=== PATIENT | female | born 1970 | race Caucasian/White ===

== ENCOUNTER 2017-03-01 12:56 | Observation (INO) ==
[2017-03-01] MEDS ORDERED: Ondansetron 4 MG/2 ML VIAL IVP ONE ×2 (13:24→14:58)
[2017-03-01] MEDS ORDERED: *HR* Morphine 2 MG/ML SYRINGE IVP ONE ×2 (13:24→14:57)
[2017-03-01 13:35] LABS: Bilirubin,Urine Negative (Negative); Blood,Urine Negative (Negative); Clarity,Urine Clear (Clear); Color,Urine Yellow (Yellow); Glucose,Urine (UA) Normal (Normal); Ketones,Urine Negative (Negative); Leukocyte Esterase,Urine Negative (Negative); Nitrite,Urine Negative (Negative); Protein,Urine Negative (Neg-Trace); Urobilinogen,Urine Normal (Normal)
--- NOTE | 2017-03-01 13:46 | Emergency Department Note ---
Disposition Clinical Impression: Acute appendicitis Qualifiers: Acute appendicitis type: unspecified acute appendicitis type Qualified Code(s) : K35.80 - Unspecified acute appendicitis Disposition: Admitted As Inpatient Condition: Good Referrals: NONE,PCP [Non-Partnered Physician] - Forms: Work/School Release, ED Satisfaction Letter Abdominal Pain HPI - General Chief Complaint: ED Abdominal Pain Stated Complaint: Right ABD pain Time Seen by Provider: 03/01/17 13:08 Source: patient Mode of arrival: private vehicle Limitations: no limitations Nursing Notes Reviewed: Yes Vital Signs Reviewed: Yes - History of Present Illness HPI Narrative: 46-year-old female no medical history who presents to the ER with a chief complaint of abdominal pain. Patient states that she started developing pain on the 18th of this month. She reports it is mostly right lower quadrant. She reports nausea during this time but no vomiting or diarrhea. No recent fevers that she is aware of. She denies a prior surgical history with the exception of a total hysterectomy. She denies sick contacts. She has no other complaints. Pt Subjective Complaint: abdominal pain Onset (ago): day(s) Consistency: constant Location: RLQ Pain Severity: severe Pain Scale: 9 Quality: stabbing Radiation: none Migration to: no migration Improves with: nothing Worsens with: nothing Associated symptoms: Reports: nausea. Denies: vomiting, diarrhea, fever, dysuria, hematuria - Related Data Previous Rx's Medication Instructions Recorded predniSONE [PredniSONE] 60 mg PO DAILY #30 tablet 02/20/15 Allergies Allergy/AdvReac Type Severity Reaction Status Date / Time acetaminophen Allergy Rash Unverified 03/01/17 12:57 [From Tylenol-Codeine #3] cephalexin [From Keflex] Allergy Rash Unverified 03/01/17 12:57 codeine Allergy Rash Verified 03/01/17 12:57 venlafaxine [From Effexor] Allergy See Unverified 03/01/17 12:57 Comments venom-honey bee Allergy Anaphylaxis Unverified 03/01/17 12:57 All systems ED: reviewed and negative except as stated. Constitutional: Denies: fever Cardiovascular: Denies: chest pain Respiratory: Denies: dyspnea Gastrointestinal: Reports: abdominal pain, nausea. 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 history : 2 Para: 2 A: 0 Psychiatric history: Reports: anxiety, depression - Social History Smoking status: Current every day smoker Alcohol use: Reports: rarely Drug use: Reports: none Physical Exam - General Limitations: no limitations General appearance: alert, in no apparent distress - Head Head exam: atraumatic, normocephalic, normal inspection - Eye Eye exam: Present: normal appearance, EOMI - ENT ENT exam: normal exam - Neck Neck exam: Present: normal inspection, full ROM - Chest Chest inspection: Present: normal inspection, symmetric chest wall rise - Respiratory Respiratory exam: Present: normal lung sounds bilaterally - Cardiovascular Cardiovascular exam: Present: regular rate, normal rhythm, normal heart sounds - Abdominal Exam Abdominal exam: Present: soft, tenderness (Patient has moderate tenderness to palpation in the right lower quadrant without rigidity or guarding.). Absent: distention, guarding, rigidity - Extremities Exam Extremities exam: Present: normal inspection, full ROM - Expanded Upper Extremity Exam Shoulder exam: Present: normal inspection, full ROM Arm exam: Present: normal inspection, full ROM Elbow exam: Present: normal inspection, full ROM Forearm/Wrist exam: Present: normal inspection, full ROM Hand exam: Present: normal inspection, full ROM - Expanded Lower Extremity Exam Hip/Pelvis exam: Present: normal inspection, full ROM Upper leg exam: Present: normal inspection, full ROM Knee exam: Present: normal inspection, full ROM Lower leg exam: Present: normal inspection, full ROM Ankle exam: Present: normal inspection, full ROM Foot/toe exam: Present: normal inspection, full ROM Neurovascular/Tendon exam: Absent: motor deficit, sensory deficit - Neurological Exam Neurological exam: Present: alert. Absent: motor sensory deficit - Psychiatric Psychiatric exam: Present: normal affect, normal mood - Skin Skin exam: Present: warm, dry, intact, normal color Course Course Narrative: Patient seen and examined. Vital signs reviewed. We will get a CT scan of the abdomen and pelvis as well as labs and urinalysis. - Reevaluation(s) Reevaluation #1: I discussed results of imaging, lab work and consultation with the surgeon. Patient is tearful but understands the course of her medical care. Patient admitted to the surgeon service for further evaluation and management. - Consultations Consultation #1: Case discussed with the on-call surgeon Dr. Guerrero's nurse. Discussed patient's history labs imaging and exam findings. The patient has uncomplicated appendicitis. We will give a dose of Zosyn here and they request the patient to be brought to PACU. Vital Signs Temperature 97.6 F 03/01/17 12:58 Pulse Rate 81 03/01/17 12:58 Respiratory Rate 16 03/01/17 12:58 Blood Pressure 141/93 03/01/17 12:58 O2 Sat by Pulse Oximetry 100 03/01/17 12:58 Temperature 97.6 F 03/01/17 12:58 Pulse Rate 81 03/01/17 12:58 Respiratory Rate 16 03/01/17 12:58 Blood Pressure 141/93 03/01/17 12:58 O2 Sat by Pulse Oximetry 100 03/01/17 12:58 Oxygen Delivery Oxygen Delivery Room Air Abdominal Pain - MDM Narrative Medical decision making narrative: 46-year-old female presents to the ER due to right sided abdominal pain for 3 days duration. She has acute appendicitis on CT. White count is 12. Patient' s pain is well-controlled in the ER. Consultation to the surgeon with admission to the surgeon service for further management. - Lab Data Lab results reviewed: Yes I reviewed the patient's lab results. Result diagrams: 03/01/17 13:49 03/01/17 13:49 Lab Results 03/01/17 03/01/17 03/01/17 Range/Units 13:16 13:16 13:49 WBC 12.0 H (4.3-11.1) K/mcL RBC 4.26 (3.82-4.97) M/mcL Hgb 12.5 (11.5-15.4) g/dL Hct 39.2 (35.3-44.9) % MCV 92.0 (83.0-100.0) fL MCH 29.3 (28.0-33.3) pg MCHC 31.9 (31.6-35.5) g/dL RDW 13.7 (11.5-14.5) % Plt Count 257 (140-400) K/mcL MPV 11.0 (9.4-12.4) fL Immature Gran % 0.3 (0-4) % Seg Neutrophils % 76.1 % Lymphocytes % 13.9 % Monocytes % 8.2 % Eosinophils % 1.3 % Basophils % 0.2 % Neutrophils # 9.1 H (1.6-8.9) K/mcL Lymphocytes # 1.7 (0.6-4.6) K/mcL Monocytes # 1.0 (0.0-1.3) K/mcL Eosinophils # 0.2 (0.0-0.6) K/mcL Basophils # 0.0 (0.0-0.2) K/mcL Sodium (136-145) mEq/L Potassium (3.5-4.5) mEq/L Chloride (98-109) mEq/L Carbon Dioxide (19-29) mEq/L BUN (7-20) mg/dL Creatinine (0.57-1.11) mg/dL Est GFR ( Amer) (> 60) Est GFR (Non-Af Amer) (> 60) BUN/Creatinine Ratio (6-26) Glucose (70-99) mg/dL Calculated Osmolality (280-300) Calcium (8.6-10.8) mg/dL Total Bilirubin (0.2-1.2) mg/dL Direct Bilirubin (0.0-0.5) mg/dL Indirect Bilirubin (0.0-1.2) mg/dL AST (5-34) Units/L ALT (0-55) Units/L Alkaline Phosphatase (38-126) Units/L Serum Total Protein (6.0-8.3) g/dL Albumin (3.5-5.0) g/dL Globulin (2.4-3.5) g/dL Albumin/Globulin Ratio (1.1-2.2) Lipase (8-78) Units/L Urine Color Yellow (Yellow) Urine Clarity Clear (Clear) Urine pH 6.0 (5.0-8.0) pH Units Ur Specific [place] 1.020 (1.010-1.025) Urine Protein Negative (Neg-Trace) mg/dL Urine Glucose (UA) Normal (Normal) mg/dL Urine Ketones Negative (Negative) mg/dL Urine Blood Negative (Negative) Urine Nitrite Negative (Negative) Urine Bilirubin Negative (Negative) Urine Urobilinogen Normal (Normal) mg/dL Ur Leukocyte Esterase Negative (Negative) Ur Culture Indicated? NO (NO) Urine Test Negative (Negative) 03/01/17 Range/Units 13:49 WBC (4.3-11.1) K/mcL RBC (3.82-4.97) M/mcL Hgb (11.5-15.4) g/dL Hct (35.3-44.9) % MCV (83.0-100.0) fL MCH (28.0-33.3) pg MCHC (31.6-35.5) g/dL RDW (11.5-14.5) % Plt Count (140-400) K/mcL MPV (9.4-12.4) fL Immature Gran % (0-4) % Seg Neutrophils % % Lymphocytes % % Monocytes % % Eosinophils % % Basophils % % Neutrophils # (1.6-8.9) K/mcL Lymphocytes # (0.6-4.6) K/mcL Monocytes # (0.0-1.3) K/mcL Eosinophils # (0.0-0.6) K/mcL Basophils # (0.0-0.2) K/mcL Sodium 140 (136-145) mEq/L Potassium 3.9 (3.5-4.5) mEq/L Chloride 104 (98-109) mEq/L Carbon Dioxide 28 (19-29) mEq/L BUN 17 (7-20) mg/dL Creatinine 0.78 (0.57-1.11) mg/dL Est GFR ( Amer) > 60 (> 60) Est GFR (Non-Af Amer) > 60 (> 60) BUN/Creatinine Ratio 22 (6-26) Glucose 78 (70-99) mg/dL Calculated Osmolality 290 (280-300) Calcium 9.7 (8.6-10.8) mg/dL Total Bilirubin < 0.3 (0.2-1.2) mg/dL Direct Bilirubin 0.1 (0.0-0.5) mg/dL Indirect Bilirubin 0.2 (0.0-1.2) mg/dL AST 17 (5-34) Units/L ALT 18 (0-55) Units/L Alkaline Phosphatase 161 H (38-126) Units/L Serum Total Protein 7.5 (6.0-8.3) g/dL Albumin 3.7 (3.5-5.0) g/dL Globulin 3.8 H (2.4-3.5) g/dL Albumin/Globulin Ratio 1.0 L (1.1-2.2) Lipase 22 (8-78) Units/L Urine Color (Yellow) Urine Clarity (Clear) Urine pH (5.0-8.0) pH Units Ur Specific [place] (1.010-1.025) Urine Protein (Neg-Trace) mg/dL Urine Glucose (UA) (Normal) mg/dL Urine Ketones (Negative) mg/dL Urine Blood (Negative) Urine Nitrite (Negative) Urine Bilirubin (Negative) Urine Urobilinogen (Normal) mg/dL Ur Leukocyte Esterase (Negative) Ur Culture Indicated? (NO) Urine Test (Negative) - Radiology Data Radiology results reviewed: Yes I reviewed the patient's radiology results. Abdomen/Pelvis CT 03/01/17 13:24 IMPRESSION: 1. Acute appendicitis. No evidence of perforation or abscess. 2. Secondary small bowel ileus. 3. Incidental mild fatty infiltration of the liver. D/ / 03/01/2017 14:42:13 Alexandra Hernandez MD / lizzy Interpreting Provider: Alexandra Hernandez MD
--- NOTE | 2017-03-01 13:47 | Emergency Department Note ---
START Narrative - START START: I examined this patient and my medical decision-making was reviewed with the Resident Physician. I agree with the documented findings, disposition and treatment plan as described except to the extent set forth below. RLQ pain. +guarding and peritoneal sign. eval for appendicitis
[2017-03-01 13:55] LABS: Basophils % 0.2 %; Eosinophils # 0.2 K/mcL (0.0-0.6); Eosinophils % 1.3 %; Hematocrit 39.2 % (35.3-44.9); Hemoglobin 12.5 g/dL (11.5-15.4); Immature Granulocytes % 0.3 % (0-4); Lymphocytes # 1.7 K/mcL (0.6-4.6); Lymphocytes % 13.9 %; Mean Corpuscular HGB Conc 31.9 g/dL (31.6-35.5); Mean Corpuscular Hemoglobin 29.3 pg (28.0-33.3); Monocytes % 8.2 %; Neutrophils # 9.1 K/mcL (1.6-8.9); Platelet Count 257 K/mcL (140-400); Red Blood Count 4.26 M/mcL (3.82-4.97); Red Cell Distribution Width 13.7 % (11.5-14.5); Segmented Neutrophils % 76.1 %
[2017-03-01 14:10] LABS: Alanine Aminotransferase 18 Units/L (0-55); Albumin 3.7 g/dL (3.5-5.0); Alkaline Phosphatase 161 Units/L (38-126); Aspartate Amino Transferase 17 Units/L (5-34); BUN/Creatinine Ratio 22 (6-26); Bilirubin,Direct 0.1 mg/dL (0.0-0.5); Bilirubin,Indirect 0.2 mg/dL (0.0-1.2); Bilirubin,Total < 0.3 mg/dL (0.2-1.2); Blood Urea Nitrogen 17 mg/dL (7-20); Calcium 9.7 mg/dL (8.6-10.8); Carbon Dioxide 28 mEq/L (19-29); Chloride 104 mEq/L (98-109); Globulin 3.8 g/dL (2.4-3.5); Glucose 78 mg/dL (70-99); Lipase 22 Units/L (8-78); Osmolality,Calculated 290 (280-300); Potassium 3.9 mEq/L (3.5-4.5); Sodium 140 mEq/L (136-145); Total Protein 7.5 g/dL (6.0-8.3); eGFR For African Americans > 60 (> 60); eGFR For Non-African Americans > 60 (> 60)
[2017-03-01] MEDS ORDERED: Piperacillin/Tazobactam 3.375 GM in D5% in Water (Mini-Bag+) 100 ML IVPB ONE (14:54)
--- NOTE | 2017-03-01 15:16 | General Surg History&Physical ---
Date of Encounter: 03/01/17 Time of Encounter: 15:45 Assessment and Plan (1) Leukocytosis Current Visit: Yes Status: Acute The assessment and plan as outlined above was discussed with the patient and/or family members who expressed understanding and agreement. All questions were answered. patient was to receive zosyn starting in the ED will check CBC tomorrow Qualifiers: Leukocytosis type: unspecified Qualified Code(s): D72.829 - Elevated white blood cell count, unspecified (2) Acute appendicitis Current Visit: Yes Status: Acute The assessment and plan as outlined above was discussed with the patient and/or family members who expressed understanding and agreement. All questions were answered. discussed with patient CT and lab results. She has acute appendicitis. Will plan laparoscopic appendectomy, possible open, risks and benefits discussed and she wishes to proceed she ate pretzels at noon and a breakfast sandwich at 7 am continue NPO prn pain control abx Qualifiers: Acute appendicitis type: unspecified acute appendicitis type Qualified Code (s): K35.80 - Unspecified acute appendicitis (3) GERD (gastroesophageal reflux disease) Current Visit: Yes Status: Chronic The assessment and plan as outlined above was discussed with the patient and/or family members who expressed understanding and agreement. All questions were answered. PPI therapy Qualifiers: Esophagitis presence: esophagitis presence not specified Qualified Code(s) : K21.9 - Gastro-esophageal reflux disease without esophagitis (4) Anxiety Current Visit: Yes Status: Chronic The assessment and plan as outlined above was discussed with the patient and/or family members who expressed understanding and agreement. All questions were answered. ok to continue home meds (5) Depression Current Visit: Yes Status: Chronic The assessment and plan as outlined above was discussed with the patient and/or family members who expressed understanding and agreement. All questions were answered. ok to continue home meds Qualifiers: Depression Type: unspecified Qualified Code(s): F32.9 - Major depressive disorder, single episode, unspecified History of Present Illness Chief complaint: abdominal pain HPI: Ms. Martins is a 46 year old female who woke two days ago with RLQ sharp pain. The pain has progressively gotten worse with time. She has had a lot of nausea but no emesis. No dysuria or diarrhea. Denies fevers chills or night sweats other than her usual after her hysterectomy. She presented to the ED where wbc was elevated and CT showed acute noncomplicated appendicitis. Past Med Surg Social Fam HX - Past Medical History Source: patient Medical history: no medical history Psychiatric history: anxiety, depression - Past Surgical History Surgical History: , hysterectomy - Social History Smoking Status: Current every day smoker Smokeless Tobacco Status: No Alcohol use: rarely Drug use: none Medications and Allergies Albuterol Sulfate [Albuterol Inhaler] 2 puff IH Q6H PRN 03/01/17 [History] EPINEPHrine [Epipen] 0.3 mg IM ONCE PRN 03/01/17 [History] Fluticasone Propionate Nasal [Flonase] 2 spr NS DAILY PRN 03/01/17 [History] Gabapentin [Neurontin] 100 mg PO TID 03/01/17 [History] Multivitamin [One Daily Essential] 1 each PO DAILY 03/01/17 [History] PARoxetine HCl [Paroxetine HCl] 10 mg PO DAILY 03/01/17 [History] 3 Allergy/AdvReac Type Severity Reaction Status Date / Time acetaminophen Allergy Rash Verified 03/01/17 15:07 [From Tylenol-Codeine #3] cephalexin [From Keflex] Allergy Rash Verified 03/01/17 15:07 codeine Allergy Rash Verified 03/01/17 15:07 venlafaxine [From Effexor] Allergy See Verified 03/01/17 15:07 Comments venom-honey bee Allergy Anaphylaxis Verified 03/01/17 15:07 Review of Systems All systems PM: reviewed and no additional remarkable complaints except as stated All systems PM: A 10-system review of systems was performed and is negative for pertinent findings except as documented above in the HPI. General Surgery Exam Initial Vital Signs Temp Pulse Resp BP Pulse Ox 97.6 F 81 16 141/93 100 03/01/17 12:58 03/01/17 12:58 03/01/17 12:58 03/01/17 12:58 03/01/17 12:58 - General physical appearance well developed, well nourished, no distress, obese - Eyes PERRL, normal ocular movement - ENT normal mucosa, normocephalic - Neck trachea midline - Respiratory normal expansion, clear to auscultation - Cardiovascular Cardiovascular exam: Present: RRR - Abdomen Abdomen general surgery: Present: bowel sounds present, soft, tender (RLQ, no rebound or guarding) - Integumentary Integumentary general surgery: Present: warm and dry, no abnormal pigmentation - Neurologic Present: CN 2-12 grossly intact - Musculoskeletal Present: normal posture - Psychiatric Psychiatric general surgery: Present: A&Ox3, speech is normal Results - Labs 03/01/17 13:49 03/01/17 13:49 Abnormal lab results WBC 12.0 K/mcL (4.3-11.1) H 03/01/17 13:49 Neutrophils # 9.1 K/mcL (1.6-8.9) H 03/01/17 13:49 Alkaline Phosphatase 161 Units/L (38-126) H 03/01/17 13:49 Globulin 3.8 g/dL (2.4-3.5) H 03/01/17 13:49 Albumin/Globulin Ratio 1.0 (1.1-2.2) L 03/01/17 13:49 All other labs normal. - Imaging CT scan - abdomen: report reviewed, image reviewed CT scan - pelvis: report reviewed, image reviewed
[2017-03-01] MEDS ORDERED: *HR* Propofol 200 MG/20 ML VIAL IVP ONE (15:23)
[2017-03-01] MEDS ORDERED: *HR* FentaNYL (PF) 100 MCG/2 ML VIAL ONE (15:23)
[2017-03-01] MEDS ORDERED: *HR* Midazolam HCl 2 MG/2 ML VIAL ONE (15:23)
[2017-03-01] MEDS ORDERED: *HR* Succinylcholine 200 MG/10 ML VIAL IVP ONE (15:24)
[2017-03-01] MEDS ORDERED: Dexamethasone 4 MG/ML VIAL ONE (15:24)
[2017-03-01] MEDS ORDERED: Ondansetron 4 MG/2 ML VIAL ONE (15:24)
[2017-03-01] MEDS ORDERED: Lidocaine -MPF 2% 2 ML VIAL ONE (15:24)
[2017-03-01] MEDS ORDERED: *HR* Rocuronium Bromide 50 MG/5 ML VIAL ONE (15:24)
[2017-03-01] MEDS ORDERED: Ringers Solution, Lactated 1,000 ML ONE (15:41)
--- NOTE | 2017-03-01 15:59 | Anesthesia Evaluation PreOp ---
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) Other Medical History: Denies Any Significant HX Anesthesia History: No Prior Anesthetic Complications, Past Anesthesia (C-S, hysterectomy) Alcohol Use: rarely Drug use: none Medications and Allergies Albuterol Sulfate [Albuterol Inhaler] 2 puff IH Q6H PRN 03/01/17 [History] EPINEPHrine [Epipen] 0.3 mg IM ONCE PRN 03/01/17 [History] Fluticasone Propionate Nasal [Flonase] 2 spr NS DAILY PRN 03/01/17 [History] Gabapentin [Neurontin] 100 mg PO TID 03/01/17 [History] Multivitamin [One Daily Essential] 1 each PO DAILY 03/01/17 [History] PARoxetine HCl [Paroxetine HCl] 10 mg PO DAILY 03/01/17 [History] 3 Allergy/AdvReac Type Severity Reaction Status Date / Time acetaminophen Allergy Rash Verified 03/01/17 15:07 [From Tylenol-Codeine #3] cephalexin [From Keflex] Allergy Rash Verified 03/01/17 15:07 codeine Allergy Rash Verified 03/01/17 15:07 venlafaxine [From Effexor] Allergy See Verified 03/01/17 15:07 Comments venom-honey bee Allergy Anaphylaxis Verified 03/01/17 15:07 - Meds/Allergy Pre-op Review Medications Reviewed: Yes Allergies Reviewed: Yes Beta Blockers on Current Med List: No Anesthesia Results - Labs 03/01/17 13:49 03/01/17 13:49 Anesthesia Exam Vital Signs Temp Pulse Resp BP Pulse Ox 03/01/17 15:51 0 0/0 03/01/17 12:58 97.6 F 81 16 141/93 100 Intake and Output 02/28/17 03/01/17 03/01/17 23:59 07:59 15:59 Other: Stool Characteristics Normal for Patient Weight 102.149 kg Patient Weight 03/01/17 23:59 Weight 102.149 kg Weight: 102 kg NPO (# of Hours): ate at noon - HEENT Pupil (Motor): Pupils equal, EOMI Mallampati: II Teeth: Normal Oral Opening: Greater than 3 - SOUND PRINTER LOC: Oriented SOUND PRINTER Motor: Normal RUE, Normal LUE, Normal RLE, Normal LLE, Normal Face - Cardiac Rhythm: Regular Murmur: None - Pulmonary Breath Sounds: bilateral Clear Respiratory Effort: Symmetrical Anesthesia Assess/Plan ASA Score: 2 Modified Farhana Scale for Level of Consciousness: Cooperative, oriented, and tranquil Anesthetic Plan: General Monitoring Plan: Standard Monitors Recovery Plan: PACU
[2017-03-01] MEDS ORDERED: *HR* Promethazine 25 MG/ML VIAL IVP PRN (16:20)
[2017-03-01] MEDS ORDERED: Naloxone 0.4 MG/ML INJ IVP PRN (16:20)
[2017-03-01] MEDS ORDERED: Ondansetron 4 MG/2 ML VIAL IVP PRN (16:20)
[2017-03-01] MEDS ORDERED: Piperacillin/Tazobactam 3.375 GM in D5% in Water (Mini-Bag+) 100 ML IVPB SCH (16:20)
[2017-03-01] MEDS ORDERED: *HR* HYDROmorphone (PF) 1 MG/ML SYRINGE IVP PRN (16:20)
[2017-03-01] MEDS ORDERED: Pantoprazole 40 MG VIAL IVP SCH (16:20)
[2017-03-01] MEDS: *HR* HYDROmorphone (PF) 1 MG/ML SYRINGE IVP PRN ×2 (16:53→20:56)
[2017-03-01] MEDS: 0.9 % Sodium Chloride 1,000 ML IVC SCH (16:55)
[2017-03-01] MEDS ORDERED: Gabapentin 100 MG CAPSULE PO SCH (21:00)
[2017-03-02] MEDS: Piperacillin/Tazobactam 3.375 GM in D5% in Water (Mini-Bag+) 100 ML IVPB SCH ×4 (00:11→22:11)
[2017-03-02] MEDS: *HR* HYDROmorphone (PF) 1 MG/ML SYRINGE IVP PRN ×5 (00:15→22:12)
[2017-03-02 04:09] LABS: Basophils % 0.3 %; Eosinophils # 0.1 K/mcL (0.0-0.6); Eosinophils % 0.9 %; Hematocrit 37.8 % (35.3-44.9); Hemoglobin 12.3 g/dL (11.5-15.4); Immature Granulocytes % 0.3 % (0-4); Lymphocytes # 1.8 K/mcL (0.6-4.6); Lymphocytes % 14.3 %; Mean Corpuscular HGB Conc 32.5 g/dL (31.6-35.5); Mean Corpuscular Hemoglobin 30.1 pg (28.0-33.3); Mean Corpuscular Volume 92.6 fL (83.0-100.0); Mean Platelet Volume 11.5 fL (9.4-12.4); Neutrophils # 9.6 K/mcL (1.6-8.9); Platelet Count 238 K/mcL (140-400); Red Blood Count 4.08 M/mcL (3.82-4.97); Red Cell Distribution Width 13.7 % (11.5-14.5); Segmented Neutrophils % 76.2 %
[2017-03-02 04:12] LABS: BUN/Creatinine Ratio 10 (6-26); Blood Urea Nitrogen 8 mg/dL (7-20); Calcium 9.3 mg/dL (8.6-10.8); Carbon Dioxide 24 mEq/L (19-29); Chloride 105 mEq/L (98-109); Glucose 101 mg/dL (70-99); Osmolality,Calculated 284 (280-300); Potassium 3.9 mEq/L (3.5-4.5); Sodium 138 mEq/L (136-145); eGFR For African Americans > 60 (> 60); eGFR For Non-African Americans > 60 (> 60)
[2017-03-02] MEDS: 0.9 % Sodium Chloride 1,000 ML IVC SCH ×3 (04:28→21:43)
[2017-03-02] MEDS ORDERED: *HR* Rocuronium Bromide 50 MG/5 ML VIAL ONE (07:04)
[2017-03-02] MEDS ORDERED: Dexamethasone 4 MG/ML VIAL ONE (07:04)
[2017-03-02] MEDS ORDERED: Ondansetron 4 MG/2 ML VIAL ONE (07:04)
[2017-03-02] MEDS ORDERED: *HR* Propofol 200 MG/20 ML VIAL IVP ONE ×2 (07:04→08:34)
[2017-03-02] MEDS ORDERED: *HR* FentaNYL (PF) 100 MCG/2 ML VIAL ONE ×2 (07:04→07:56)
[2017-03-02] MEDS ORDERED: Lidocaine -MPF 2% 2 ML VIAL ONE (07:04)
[2017-03-02] MEDS ORDERED: *HR* Midazolam HCl 2 MG/2 ML VIAL ONE (07:04)
[2017-03-02] MEDS ORDERED: *HR* HYDROmorphone (PF) 1 MG/ML SYRINGE IVP PRN ×2 (07:16→09:22)
[2017-03-02] MEDS ORDERED: Acetaminophen IV 1,000 MG/100 ML INFUS..BTL ONE (07:34)
[2017-03-02] MEDS ORDERED: Lidocaine -MPF 4% 5 ML AMPUL ONE (07:47)
[2017-03-02] MEDS ORDERED: EPHEDrine 50 MG/ML VIAL ONE (08:11)
[2017-03-02] MEDS ORDERED: Scopolamine Patch 1.5 MG PATCH.TD72 TD ONE (08:12)
[2017-03-02] MEDS ORDERED: Neostigmine Methylsulfate 3 MG/3 ML SYRINGE ONE (08:14)
[2017-03-02] MEDS ORDERED: Ketorolac 30 MG/ML VIAL ONE (08:20)
--- NOTE | 2017-03-02 08:49 | Operative Note ---
Date of procedure: 03/02/17 Pre-op diagnosis: acute appendicitis Post-op diagnosis: same Procedure: laparoscopic appendectomy Complications: none immediate Anesthesia: GETA, local Local Anesthetics: 0.5% Sensorcaine HCL SubQ (cc) (30) Surgeon: Linda Guerrero Tunnel Man: Bereket Adam Estimated blood loss (cc): 5 Specimen: appendix Condition: stable Disposition: PACU Procedure in Detail: The patient was brought into the operating suite and placed supine on the operating table. Sign-in was performed and everyone was in agreement. Anesthesia was induced and patient was endotracheally intubated by anesthesia without incident. An OG tube was placed by anesthesia. The abdomen was prepped and draped in the usual sterile fashion. A timeout was performed and again everyone was in agreement. A stab incision left upper quadrant was made with an 11 blade. The Veress needle was placed in this and water drop test confirmed placement and the abdomen was insufflated. A supraumbilical incision was made through the skin and the subcutaneous tissue with an 11 blade. Towel clamps were placed on either side of the umbilicus for retraction. S- retractors were used to dissect down to the anterior abdominal wall linea alba fascia. We then entered the abdomen with the 5 mm 0 degree laparoscope on a 5 mm X-suleman trocar. The area under entry was visualized and there was no bleeding and no apparent bowel injury. We then placed a 5 mm port in the left lower quadrant under direct visualization after first incising the skin with 11 blade. There were omental adhesions to the patient's Pfannenstiel incision site. The omental adhesions were taken down with hook cautery. We placed a suprapubic 5 mm port under direct visualization after first incising the skin with an 11 blade. The laparoscope was placed through this and we exchanged the supraumbilical port for a 12 mm port under direct visualization. The patient was placed in slight Trendelenburg left side down position. The cecum was located as was the appendix. The appendix was densely adherent to the cecum. The appendix was grasped and retracted anteriorly and caudally with a laparoscopic Juan. The appendix and mesoappendix was transected with a laparoscopic flex-ex ETS stapler using a white load. The appendix was removed via the supraumbilical incision site. Staple line was evaluated and there was no bleeding and the staple line was intact. The area was irrigated with sterile saline which was then suctioned free from the abdomen. The insufflation was suctioned free from the abdomen and all trochars removed. We closed the abdominal wall at the supraumbilical incision site with an 0 Vicryl [id number] stitch. A 30 cc of 0.5% Marcaine was injected subcutaneously at the 3 port sites. The skin at the two 5 mm port sites was closed with 4-0 Monocryl interrupted subcuticular stitches. The skin at the supraumbilical incision site was closed with a 4-0 Monocryl running subcuticular stitch. Steri -Strips were applied to the wounds. The patient was extubated in the OR and tolerated the procedure well and was taken to PACU after all lap and instrument counts were correct at the end of the case.
[2017-03-02] MEDS: *HR* Promethazine 25 MG/ML VIAL IVP PRN ×2 (08:56→09:04)
--- NOTE | 2017-03-02 09:17 | Anesthesia Evaluation Post Op ---
Date of Encounter: 03/02/17 Time of Encounter: 09:16 - Vital Signs Vital Signs: Vital Signs/O2 Sat, Most Current Temp Pulse Resp BP Pulse Ox 98.5 F 70 14 130/72 97 03/02/17 08:50 03/02/17 09:10 03/02/17 09:10 03/02/17 09:10 03/02/17 09:10 - Lungs Lungs: Clear Ascult./Percussion - Airway Airway: Non-obstructed - Cardiovascular Regular Rate - Mental Status Mental Status: Asleep with brisk response to light stimulation - Pain Pain Scale: 3 Pain Scale used: Numeric (1 - 10) - Nausea Vomiting Nausea Vomiting: Not Present - Hydration Hydration: Ice chips, Has not voided - Discharge PostOp Status: Transfer Patient to floor
[2017-03-02] MEDS ORDERED: Naloxone 0.4 MG/ML INJ IVP PRN (09:22)
[2017-03-02] MEDS ORDERED: *HR* Promethazine 25 MG/ML VIAL IVP PRN (09:22)
[2017-03-02] MEDS: Gabapentin 100 MG CAPSULE PO SCH ×2 (14:35→22:11)
[2017-03-02] MEDS: *HR* OxyCODONE/APAP 5/325 TABLET PO PRN (17:58)
[2017-03-03] MEDS: Ondansetron 4 MG/2 ML VIAL IVP PRN ×2 (01:11→08:40)
[2017-03-03] MEDS: *HR* HYDROmorphone (PF) 1 MG/ML SYRINGE IVP PRN ×4 (01:44→18:57)
[2017-03-03 03:45] LABS: Basophils % 0.1 %; Eosinophils % 0.2 %; Hematocrit 37.3 % (35.3-44.9); Hemoglobin 11.8 g/dL (11.5-15.4); Immature Granulocytes % 0.3 % (0-4); Lymphocytes # 1.5 K/mcL (0.6-4.6); Lymphocytes % 10.1 %; Mean Corpuscular HGB Conc 31.6 g/dL (31.6-35.5); Mean Corpuscular Hemoglobin 29.6 pg (28.0-33.3); Mean Corpuscular Volume 93.5 fL (83.0-100.0); Mean Platelet Volume 11.4 fL (9.4-12.4); Monocytes # 1.3 K/mcL (0.0-1.3); Monocytes % 8.2 %; Neutrophils # 12.4 K/mcL (1.6-8.9); Platelet Count 261 K/mcL (140-400); Red Blood Count 3.99 M/mcL (3.82-4.97); Red Cell Distribution Width 13.7 % (11.5-14.5); Segmented Neutrophils % 81.1 %
[2017-03-03] MEDS: *HR* OxyCODONE/APAP 5/325 TABLET PO PRN ×4 (04:58→23:31)
[2017-03-03] MEDS: Piperacillin/Tazobactam 3.375 GM in D5% in Water (Mini-Bag+) 100 ML IVPB SCH ×3 (06:21→23:32)
[2017-03-03] MEDS: 0.9 % Sodium Chloride 1,000 ML IVC SCH ×3 (08:32→15:45)
[2017-03-03] MEDS: Gabapentin 100 MG CAPSULE PO SCH ×3 (08:32→20:35)
[2017-03-03] MEDS: Pantoprazole 40 MG VIAL IVP SCH (08:32)
[2017-03-03] MEDS ORDERED: Ondansetron 4 MG/2 ML VIAL IVP PRN (12:04)
[2017-03-03] MEDS: Ketorolac 15 MG/ML VIAL IVP SCH ×3 (12:44→23:31)
--- NOTE | 2017-03-03 13:13 | General Surgery Progress Note ---
<Bina Arndt - Last Filed: 03/03/17 13:38> Date of Encounter: 03/03/17 Time of Encounter: 12:00 - Assessment and Plan (1) Acute appendicitis Current Visit: Yes Status: Acute Postoperative day one laparoscopic appendectomy, pathology pending -continue supportive care and discomfort management -will add scheduled Toradol -will back down to clear liquids as patient as stating nausea, and sharp crampy pain w/diet -increase antiemetics to Q4 hours for Zofran -encouraged ambulation and use of incentive spirometer -D/C planning for possibly tomorrow pending clinical course Qualifiers: Acute appendicitis type: unspecified acute appendicitis type Qualified Code (s): K35.80 - Unspecified acute appendicitis (2) Leukocytosis Current Visit: Yes Status: Acute Continue IV antibiotics. Repeat a.m. labs Qualifiers: Leukocytosis type: unspecified Qualified Code(s): D72.829 - Elevated white blood cell count, unspecified (3) GERD (gastroesophageal reflux disease) Current Visit: Yes Status: Chronic Continue PPI Qualifiers: Esophagitis presence: esophagitis presence not specified Qualified Code(s) : K21.9 - Gastro-esophageal reflux disease without esophagitis Subjective Patient reports: still having pain, voiding w/o difficulty, flatus, no bowel movement, nausea, afebrile Objective Vital Signs - Last 8 Hours Temp Pulse Resp BP Pulse Ox 03/03/17 11:38 98.0 F 77 18 112/73 90 03/03/17 08:01 97.6 F 82 14 113/80 93 Intake and Output 03/02/17 03/03/17 03/03/17 23:59 07:59 15:59 Intake Total 440 / 440 1100 / 1100 100 / 100 Balance 440 / 440 1100 / 1100 100 / 100 Intake: IV Fluids 200 / 200 1100 / 1100 100 / 100 0.9 % Sodium Chloride 1, 1000 / 1000 000 ML @ 75 mls/hr IVC . [id number] [facility] Rx#: [id number] Zosyn 3.375 GM In 100 / 100 100 / 100 100 / 100 Dextrose 5% (Minibag+) 100 ML 100 ML @ 25 mls/hr IVPB Q8H [facility] Rx#: [id number] Oral 240 / 240 Other: # Voids 1 Weight 100.244 kg Patient Weight 03/03/17 23:59 Weight 100.244 kg - General physical appearance well developed, well nourished, moderate pain, other (Returned to room from ambulating and hallways.) - Eyes normal ocular movement - ENT normal nares, normal mucosa, atraumatic, normocephalic - Neck Neck exam: no masses, trachea midline - Respiratory normal expansion, normal respiratory effort, clear to auscultation, other ( Instructed on incentive spirometry use) - Cardiovascular Cardiovascular exam: Present: RRR, no murmurs/rubs/gallops - Abdomen Abdomen: Present: bowel sounds present, soft, tender (Active postoperative tenderness) - Incision Incision: Present: clean and dry, intact - Integumentary no rash - Neurologic normal coordination, normal sensation - Musculoskeletal normal gait, normal posture - Psychiatric oriented to time, oriented to person, oriented to place, memory intact ( ) - Labs 03/03/17 03:18 03/02/17 03:22 - VTE Documentation of Mechanical Device: Intermittent pneumatic compression device Consult Discharge Plan - Plan Referrals: Ben Bullock MD [Primary Care Provider] - <Linda Guerrero - Last Filed: 03/03/17 14:29> Date of Encounter: 03/03/17 Time of Encounter: 13:00 - Assessment and Plan (1) Leukocytosis Current Visit: Yes Status: Acute pathology showed acute suppurative appendicitis, continue IV abx wbc elevated, trend Qualifiers: Leukocytosis type: unspecified Qualified Code(s): D72.829 - Elevated white blood cell count, unspecified (2) Acute appendicitis Current Visit: Yes Status: Acute continue abx, ok fulls prn pain contrl gi/dvt prohpylaxis, serial abdominal exams continue IVFH Qualifiers: Acute appendicitis type: unspecified acute appendicitis type Qualified Code (s): K35.80 - Unspecified acute appendicitis (3) GERD (gastroesophageal reflux disease) Current Visit: Yes Status: Chronic Qualifiers: Esophagitis presence: esophagitis presence not specified Qualified Code(s) : K21.9 - Gastro-esophageal reflux disease without esophagitis (4) Anxiety Current Visit: Yes Status: Chronic continue home medication (5) Depression Current Visit: Yes Status: Chronic continue home medication Qualifiers: Depression Type: unspecified Qualified Code(s): F32.9 - Major depressive disorder, single episode, unspecified Subjective Patient reports: still having pain, voiding w/o difficulty, no flatus, no bowel movement, nausea, afebrile Objective Vital Signs - Last 8 Hours Temp Pulse Resp BP Pulse Ox 03/03/17 11:38 98.0 F 77 18 112/73 90 03/03/17 08:01 97.6 F 82 14 113/80 93 Intake and Output 03/02/17 03/03/17 03/03/17 23:59 07:59 15:59 Intake Total 440 / 440 1100 / 1100 220 / 220 Balance 440 / 440 1100 / 1100 220 / 220 Intake: IV Fluids 200 / 200 1100 / 1100 100 / 100 0.9 % Sodium Chloride 1, 1000 / 1000 000 ML @ 75 mls/hr IVC . [id number] [facility] Rx#: [id number] Zosyn 3.375 GM In 100 / 100 100 / 100 100 / 100 Dextrose 5% (Minibag+) 100 ML 100 ML @ 25 mls/hr IVPB Q8H [facility] Rx#: [id number] Oral 240 / 240 120 / 120 Other: Meal Breakfast Percent of Meal Consumed 25% # Voids 1 Weight 100.244 kg Patient Weight 03/03/17 23:59 Weight 100.244 kg - General physical appearance well developed, well nourished, moderate pain, obese - Eyes PERRL, normal ocular movement - ENT normal mucosa, normocephalic - Respiratory normal expansion, normal respiratory effort - Cardiovascular Cardiovascular exam: Present: RRR - Abdomen Abdomen: Present: soft, tender (appropriate postoperative tenderness). Absent: guarding, rebound - Incision Incision: Present: clean and dry, intact - Integumentary no rash, no growths - Neurologic normal coordination, normal sensation - Musculoskeletal normal posture - Psychiatric oriented to time, oriented to person, oriented to place, memory intact - Labs 03/03/17 13:41 03/02/17 03:22 Short CBC 03/03/17 03/03/17 Range/Units 13:41 03:18 WBC 13.5 H 15.3 H (4.3-11.1) K/mcL Hgb 12.0 11.8 (11.5-15.4) g/dL Hct 37.7 37.3 (35.3-44.9) % Plt Count 260 261 (140-400) K/mcL Neutrophils # 10.8 H 12.4 H (1.6-8.9) K/mcL Vital Signs Temp Pulse Resp BP Pulse Ox 03/03/17 11:38 98.0 F 77 18 112/73 90 03/03/17 08:01 97.6 F 82 14 113/80 93 03/03/17 03:14 98.8 F 88 12 129/83 95 03/02/17 23:21 98.9 F 87 20 107/69 95 03/02/17 18:31 99.5 F 75 16 113/73 95 03/02/17 15:01 98.3 F 64 14 122/79 97 Intake and Output 03/02/17 03/03/17 03/03/17 23:59 07:59 15:59 Intake Total 440 / 440 1100 / 1100 220 / 220 Balance 440 / 440 1100 / 1100 220 / 220 Intake: IV Fluids 200 / 200 1100 / 1100 100 / 100 0.9 % Sodium Chloride 1, 1000 / 1000 000 ML @ 75 mls/hr IVC . [id number] [facility] Rx#: [id number] Zosyn 3.375 GM In 100 / 100 100 / 100 100 / 100 Dextrose 5% (Minibag+) 100 ML 100 ML @ 25 mls/hr IVPB Q8H [facility] Rx#: [id number] Oral 240 / 240 120 / 120 Other: Meal Breakfast Percent of Meal Consumed 25% # Voids 1 Weight 100.244 kg Patient Weight 03/03/17 23:59 Weight 100.244 kg - Attending Attestation I have personally performed a face to face evaluation on this patient. I have reviewed and agree with the care plan. History and Exam by me shows:
[2017-03-03 14:00] LABS: Basophils % 0.2 %; Eosinophils # 0.1 K/mcL (0.0-0.6); Eosinophils % 0.9 %; Hematocrit 37.7 % (35.3-44.9); Immature Granulocytes % 0.5 % (0-4); Lymphocytes # 1.5 K/mcL (0.6-4.6); Lymphocytes % 10.9 %; Mean Corpuscular HGB Conc 31.8 g/dL (31.6-35.5); Mean Corpuscular Hemoglobin 29.6 pg (28.0-33.3); Mean Corpuscular Volume 93.1 fL (83.0-100.0); Mean Platelet Volume 11.3 fL (9.4-12.4); Monocytes # 0.9 K/mcL (0.0-1.3); Neutrophils # 10.8 K/mcL (1.6-8.9); Platelet Count 260 K/mcL (140-400); Red Blood Count 4.05 M/mcL (3.82-4.97); Red Cell Distribution Width 13.8 % (11.5-14.5); Segmented Neutrophils % 80.5 %
[2017-03-04] MEDS: *HR* OxyCODONE/APAP 5/325 TABLET PO PRN ×2 (03:16→12:27)
[2017-03-04] MEDS: 0.9 % Sodium Chloride 1,000 ML IVC SCH (03:18)
[2017-03-04] MEDS: Ketorolac 15 MG/ML VIAL IVP SCH ×2 (06:22→13:52)
[2017-03-04] MEDS: Piperacillin/Tazobactam 3.375 GM in D5% in Water (Mini-Bag+) 100 ML IVPB SCH (06:23)
[2017-03-04] MEDS: Pantoprazole 40 MG VIAL IVP SCH (09:33)
[2017-03-04] MEDS: Gabapentin 100 MG CAPSULE PO SCH (09:55)
[2017-03-04 11:05] LABS: Basophils % 0.3 %; Eosinophils # 0.3 K/mcL (0.0-0.6); Eosinophils % 2.7 %; Hematocrit 32.9 % (35.3-44.9); Immature Granulocytes % 0.3 % (0-4); Immature Platelets 6.9 % (1.1-6.1); Lymphocytes # 1.3 K/mcL (0.6-4.6); Lymphocytes % 14.2 %; Mean Corpuscular HGB Conc 31.6 g/dL (31.6-35.5); Mean Corpuscular Hemoglobin 29.3 pg (28.0-33.3); Mean Corpuscular Volume 92.7 fL (83.0-100.0); Mean Platelet Volume 11.3 fL (9.4-12.4); Monocytes # 0.9 K/mcL (0.0-1.3); Monocytes % 9.9 %; Neutrophils # 6.8 K/mcL (1.6-8.9); Platelet Count 220 K/mcL (140-400); Red Blood Count 3.55 M/mcL (3.82-4.97); Red Cell Distribution Width 13.6 % (11.5-14.5); Segmented Neutrophils % 72.6 %
[2017-03-04 11:09] LABS: Hemoglobin 10.4 g/dL (11.5-15.4)
--- NOTE | 2017-03-04 11:28 | General Surgery Progress Note ---
<Luis M Reynolds - Last Filed: 03/04/17 11:26> Date of Encounter: 03/04/17 Time of Encounter: 10:30 - Assessment and Plan (1) Status post laparoscopic appendectomy Status: Acute Post-operative day #[address] Guerrero, Patient is doing better without nausea, vomiting. +flatus, no bowel movement. Patient states that she is a very picky eater and will most likely not eat anything from the hospital but she will try to. Continue supportive care and pain management. Patient is tolerating liquid diet well. Consider advancing to soft diet. PPI for nausea and vomiting. Encourage IS use. Ambulate TID as tolerated. monitor with a.m. labs Patient was slightly febrile last night. Consider keeping her one more night and d/c tomorrow. (2) Leukocytosis Status: Acute WBC trending down 9.4< 13.5< 12.7 Patient had episode of fever of 100.5 last night. She denies any chills, nausea or vomiting. Lung examination CTAB bilaterally. No signs of infection. Consider keeping her in service for one more night and monitor. Continue Zosyn. Qualifiers: Leukocytosis type: unspecified Qualified Code(s): D72.829 - Elevated white blood cell count, unspecified (3) GERD (gastroesophageal reflux disease) Status: Chronic Continue PPI. Qualifiers: Esophagitis presence: esophagitis presence not specified Qualified Code(s) : K21.9 - Gastro-esophageal reflux disease without esophagitis Subjective Patient reports: no new complaints, feels better, voiding w/o difficulty, flatus , no bowel movement, afebrile Objective Vital Signs - Last 8 Hours Temp Pulse Resp BP Pulse Ox 03/04/17 07:26 98.9 F 85 16 113/63 92 03/04/17 04:51 99.7 F H 76 16 113/76 91 Intake and Output 03/03/17 03/04/17 03/04/17 23:59 07:59 15:59 Intake Total 100 / 100 100 / 100 Balance 100 / 100 100 / 100 Intake: IV Fluids 100 / 100 100 / 100 Zosyn 3.375 GM In 100 / 100 100 / 100 Dextrose 5% (Minibag+) 100 ML 100 ML @ 25 mls/hr IVPB Q8H [facility] Rx#: [id number] Other: Weight 102.33 kg Patient Weight 03/04/17 23:59 Weight 102.33 kg - General physical appearance well developed, well nourished, no distress - Eyes normal ocular movement - ENT atraumatic, normocephalic, CN 2-12 grossly intact - Neck Neck exam: trachea midline - Respiratory normal expansion, clear to auscultation - Cardiovascular Cardiovascular exam: Present: RRR, no murmurs/rubs/gallops - Abdomen Abdomen: Present: bowel sounds present, soft, non tender - Incision Incision: Present: clean and dry, intact - Integumentary no rash - Neurologic CN 2-12 grossly intact, normal coordination, normal sensation - Psychiatric speech is normal, memory intact - Labs 03/04/17 10:58 03/02/17 03:22 - VTE Documentation of Mechanical Device: Intermittent pneumatic compression device Consult Discharge Plan - Plan Instructions: Oxycodone/Acetaminophen (By mouth), Amoxicillin/Clavulanate Potassium (By mouth), Laxative, Stool Softeners (By mouth), Ondansetron (By mouth), Laparoscopic Appendectomy (DC) Additional Instructions: No lifting, pulling, or pushing greater than 15 lbs for 2 weeks. Do not tub soak or swim for two weeks. You may shower beginning today. Resume normal diet as tolerated. Take your antibiotics as directed. Take ibuprofen every 8 hours for pain, if this does not relieve your discomfort , take PRN percocet. Take stool softeners while on narcotics, may hold for soft stool. Follow up as directed. You may resume driving when you are not taking narcotics and safe to react in a car. You may walk and climb stairs as much as tolerated. Continue to use your incentive spirometer. Referrals: Taisha Moncada CNP [Advanced Practice Nurse] - 03/12/17 11:45 am Ben Bullock MD [Primary Care Provider] - Prescriptions: Ondansetron ODT [Zofran ODT] 4 mg SL Q4HR PRN #30 tab.rapdis PRN Reason: Nausea OxyCODONE/APAP 5/325 [Percocet 5/325 MG] 1 each PO Q4HR PRN #30 tab PRN Reason: Pain no relieved by ibuprofen Ibuprofen [Motrin] 800 mg PO Q8HR PRN #60 tablet PRN Reason: Pain Amoxicillin/Clavulanate [Augmentin] 875 mg PO BIDWM #14 tablet Docusate [Colace] 100 mg PO BID PRN #30 PRN Reason: Constipation <GlennjudyLinda - Last Filed: 03/04/17 16:55> Date of Encounter: 03/04/17 Time of Encounter: 12:05 - Assessment and Plan (1) Leukocytosis Status: Resolved wbc wnl Qualifiers: Leukocytosis type: unspecified Qualified Code(s): D72.829 - Elevated white blood cell count, unspecified (2) Acute appendicitis Status: Resolved s/p lap appy pain improved and controlled with po medication passing flatus tolerated po wbc wnl dc planning Qualifiers: Acute appendicitis type: unspecified acute appendicitis type Qualified Code (s): K35.80 - Unspecified acute appendicitis (3) GERD (gastroesophageal reflux disease) Status: Chronic Qualifiers: Esophagitis presence: esophagitis presence not specified Qualified Code(s) : K21.9 - Gastro-esophageal reflux disease without esophagitis (4) Anxiety Status: Chronic (5) Depression Status: Chronic Qualifiers: Depression Type: unspecified Qualified Code(s): F32.9 - Major depressive disorder, single episode, unspecified Subjective Patient reports: no new complaints, feels better, still having pain, pain is less, tolerating a regular diet, voiding w/o difficulty, afebrile Objective Vital Signs - Last 8 Hours Temp Pulse Resp BP Pulse Ox 03/04/17 11:32 98.4 F 88 16 132/81 95 Intake and Output 03/04/17 03/04/17 03/04/17 07:59 15:59 23:59 Intake Total 100 / 100 Balance 100 / 100 Intake: IV Fluids 100 / 100 Zosyn 3.375 GM In 100 / 100 Dextrose 5% (Minibag+) 100 ML 100 ML @ 25 mls/hr IVPB Q8H [facility] Rx#: [id number] Other: Weight 102.33 kg Patient Weight 03/04/17 23:59 Weight 102.33 kg - General physical appearance well developed, well nourished, obese - Eyes PERRL, normal ocular movement - ENT normal mucosa, normocephalic - Respiratory normal expansion, normal respiratory effort - Cardiovascular Cardiovascular exam: Present: RRR - Abdomen Abdomen: Present: bowel sounds present, soft, tender (appropriate post op tenderness) - Incision Incision: Present: clean and dry, intact - Integumentary no rash - Neurologic CN 2-12 grossly intact, normal coordination, normal sensation - Musculoskeletal normal posture - Psychiatric oriented to time, speech is normal, memory intact - Labs 03/04/17 10:58 03/02/17 03:22 - Attending Attestation I examined this patient and my medical decision-making was reviewed with the Resident Physician. I agree with the documented findings, disposition and treatment plan as described except to the extent set forth below.
[2017-03-04 11:32] VITALS: BP 132/81
[2017-03-04] MEDS ORDERED: 0.9 % Sodium Chloride 1,000 ML IVC SCH (11:42)
[2017-03-04] MEDS ORDERED: Simethicone 80 MG TAB.CHEW PO PRN (11:42)
--- NOTE | 2017-03-04 13:46 | Discharge Summary ---
Date of Encounter: 03/04/17 Time of Encounter: 12:30 - Discharge Diagnosis (1) Acute appendicitis Priority: Primary Status: Resolved Qualifiers: Acute appendicitis type: unspecified acute appendicitis type Qualified Code (s): K35.80 - Unspecified acute appendicitis (2) Leukocytosis Priority: Secondary Status: Resolved Qualifiers: Leukocytosis type: unspecified Qualified Code(s): D72.829 - Elevated white blood cell count, unspecified (3) GERD (gastroesophageal reflux disease) Priority: Secondary Status: Chronic Qualifiers: Esophagitis presence: esophagitis presence not specified Qualified Code(s) : K21.9 - Gastro-esophageal reflux disease without esophagitis - Discharge Medications Prescriptions: Ondansetron ODT [Zofran ODT] 4 mg SL Q4HR PRN #30 tab.rapdis PRN Reason: Nausea OxyCODONE/APAP 5/325 [Percocet 5/325 MG] 1 each PO Q4HR PRN #30 tab PRN Reason: Pain no relieved by ibuprofen Ibuprofen [Motrin] 800 mg PO Q8HR PRN #60 tablet PRN Reason: Pain Amoxicillin/Clavulanate [Augmentin] 875 mg PO BIDWM #14 tablet Docusate [Colace] 100 mg PO BID PRN #30 PRN Reason: Constipation Home Medications: Albuterol Sulfate [Albuterol Inhaler] 2 puff IH Q6H PRN 03/01/17 [History] EPINEPHrine [Epipen] 0.3 mg IM ONCE PRN 03/01/17 [History] Fluticasone Propionate Nasal [Flonase] 2 spr NS DAILY PRN 03/01/17 [History] Gabapentin [Neurontin] 100 mg PO TID 03/01/17 [History] Multivitamin [One Daily Essential] 1 each PO DAILY 03/01/17 [History] PARoxetine HCl [Paroxetine HCl] 10 mg PO DAILY 03/01/17 [History] Amoxicillin/Clavulanate [Augmentin] 875 mg PO BIDWM #14 tablet 03/04/17 [Rx] Docusate [Colace] 100 mg PO BID PRN #30 03/04/17 [Rx] Ibuprofen [Motrin] 800 mg PO Q8HR PRN #60 tablet 03/04/17 [Rx] Ondansetron ODT [Zofran ODT] 4 mg SL Q4HR PRN #30 tab.rapdis 03/04/17 [Rx] OxyCODONE/APAP 5/325 [Percocet 5/325 MG] 1 each PO Q4HR PRN #30 tab 03/04/17 [Rx ] Allergies/Adverse Reactions: 3 Allergy/AdvReac Type Severity Reaction Status Date / Time acetaminophen Allergy Rash Verified 03/01/17 15:07 [From Tylenol-Codeine #3] cephalexin [From Keflex] Allergy Rash Verified 03/01/17 15:07 codeine Allergy Rash Verified 03/01/17 15:07 venlafaxine [From Effexor] Allergy See Verified 03/01/17 15:07 Comments venom-honey bee Allergy Anaphylaxis Verified 03/01/17 15:07 General Surgery Exam Initial Vital Signs Temp Pulse Resp BP Pulse Ox 97.6 F 81 16 141/93 100 03/01/17 12:58 03/01/17 12:58 03/01/17 12:58 03/01/17 12:58 03/01/17 12:58 Date of admission: 03/01/17 15:05 Primary care physician: Ben Bullock MD Discharging clinician: Linda Arndt) Anticipated date of discharge: 03/04/17 - Patient Status Disposition: Home, Self-Care Condition: Good Functional capacity at discharge: independent ambulation Overall status at discharge: patient is back to baseline - Discharge Instructions Instructions: Laparoscopic Appendectomy (DC) Follow Up With: Ben Bullcok MD [Primary Care Provider] - Taisha Moncada CNP [Advanced Practice Nurse] - 03/12/17 11:45 am Forms: Inpatient Work/School Release Additional Instructions: No lifting, pulling, or pushing greater than 15 lbs for 2 weeks. Do not tub soak or swim for two weeks. You may shower beginning today. Resume normal diet as tolerated. Take your antibiotics as directed. Take ibuprofen every 8 hours for pain, if this does not relieve your discomfort , take PRN percocet. Take stool softeners while on narcotics, may hold for soft stool. Follow up as directed. You may resume driving when you are not taking narcotics and safe to react in a car. You may walk and climb stairs as much as tolerated. Continue to use your incentive spirometer. - Diet and Activity Activity: increase activity as tolerated Diet: advance to your usual diet - Hospital Course Hospital course: Ms. Martins is a 46 year old female who presented to the hospital on 2016 following a 2-day course of RLQ abd pain. that had progressively gotten worse with time, had nausea, but no emesis, dysuria, or diarrhea. She presented to the ED where wbc was elevated and CT showed acute noncomplicated appendicitis ; she was taken to the OR and underwent a laproscopic appendectomy. Her hospital course was complicated by pain control and nausea which has resolved. she is tolerating liquids, ambulating, and voiding without difficulty. - Time Spent with Patient Total time spent providing and/or coordinating discharge services: Labs on day of discharge: Labs from last 24 hours 03/04/17 03/03/17 10:58 13:41 WBC 9.4 13.5 H RBC 3.55 L 4.05 Hgb 10.4 L D 12.0 Hct 32.9 L 37.7 MCV 92.7 93.1 MCH 29.3 29.6 MCHC 31.6 31.8 RDW 13.6 13.8 Plt Count 220 260 MPV 11.3 11.3 Immature Gran % 0.3 0.5 Seg Neutrophils % 72.6 80.5 Lymphocytes % 14.2 10.9 Monocytes % 9.9 7.0 Eosinophils % 2.7 0.9 Basophils % 0.3 0.2 Neutrophils # 6.8 10.8 H Lymphocytes # 1.3 1.5 Monocytes # 0.9 0.9 Eosinophils # 0.3 0.1 Basophils # 0.0 0.0 Immature Plt Fraction 6.9 H
== END 2017-03-04 14:26 | disposition home or self-care (01) ==
LOC: 3BNU 12:56 → EMEROO 12:56 → 3BNU 15:52
PROVIDERS: ADMIT Surgery; ATTEND Surgery

== ENCOUNTER 2018-05-17 13:49 | Observation (INO) ==
[2018-05-17] MEDS ORDERED: diazePAM 5 MG TABLET PO ONE (14:08)
[2018-05-17] MEDS ORDERED: Ketorolac 15 MG/ML VIAL IVP ONE (14:08)
[2018-05-17] MEDS ORDERED: Dexamethasone 4 MG/ML VIAL IVP ONE (14:08)
--- NOTE | 2018-05-17 14:14 | Emergency Department Note ---
Disposition Clinical Impression: Decreased ambulation status Back pain Qualifiers: Back pain location: low back pain Chronicity: acute Back pain laterality: left Sciatica presence: with sciatica Sciatica laterality: sciatica of left side Qualified Code(s): M54.42 - Lumbago with sciatica, left side Disposition: Admitted As Inpatient Condition: Good Referrals: Ben Bullock MD [Primary Care Provider] - Forms: ED Satisfaction Letter Time of Disposition: 18:09 Back Pain HPI - General Chief Complaint: ED Back Pain/Injury Stated Complaint: abd pain, back pain Time Seen by Provider: 05/17/18 13:52 Source: patient, EMS Mode of arrival: EMS Limitations: no limitations Nursing Notes Reviewed: Yes Vital Signs Reviewed: Yes - History of Present Illness HPI Narrative: Patient is a 47-year-old female with past medical history of lumbar fusion, anterior approach with stitch complication that required surgery by Dr. Guerrero for suture removal. She is a history of right-sided sciatica. She has required presentation to the ED in the past due to sciatica type pain. She presents today via EMS due to concern for left sciatica type pain. Denies any new inj uries, falls, heavy lifting. Denies any fevers, nausea, vomiting, any new numbness, tingling, weakness, loss of bowel or bladder control. She states this feels very similar to her right-sided sciatica just now on the left side. She states the pain starts in her left lower back and is sharp in nature radiates around to her left anterior thigh and left posterior thigh and then runs all the way down to her feet. She also admits to some mild lower abdominal tenderness around her surgical incision site but denies any pus drainage or signs of infection. - Related Data Home Medications Medication Instructions Recorded Confirmed Albuterol Sulfate [Albuterol 2 puff IH Q6H PRN 03/01/17 05/17/18 Inhaler] EPINEPHrine [Epipen] 0.3 mg IM ONCE PRN 03/01/17 05/17/18 Fluticasone Propionate Nasal 2 spr NS DAILY PRN 03/01/17 05/17/18 [Flonase] Amitriptyline [Elavil] 50 mg PO HS PRN 05/11/18 05/17/18 Buspirone HCl [Buspar] 15 mg PO BID 05/11/18 05/17/18 Estradiol [Estrace] 1 mg PO DAILY 05/11/18 05/17/18 Omeprazole [PriLOSEC] 40 mg PO DAILY 05/11/18 05/17/18 Previous Rx's Medication Instructions Recorded Docusate [Colace] 100 mg PO BID #30 capsule 05/11/18 Oxycodone HCl/Acetaminophen 1 each PO Q6HR PRN 7 Days #25 05/11/18 [Percocet 5-325 mg Tablet] tablet Allergies Allergy/AdvReac Type Severity Reaction Status Date / Time acetaminophen Allergy Rash Verified 05/17/18 17:24 [From Tylenol-Codeine #3] cephalexin [From Keflex] Allergy Rash Verified 05/17/18 17:24 codeine Allergy Rash Verified 05/17/18 17:24 venlafaxine [From Effexor] Allergy See Verified 05/17/18 17:24 Comments venom-honey bee Allergy Anaphylaxis Verified 05/17/18 17:24 influenza virus vaccine ts AdvReac Redness of Verified 05/17/18 17:24 [id number] (36 mos,up) Skin [From Fluarix] All systems ED: reviewed and negative except as stated. Constitutional: Denies: fever Cardiovascular: Denies: chest pain Respiratory: Denies: cough, dyspnea, wheezes, hemoptysis Gastrointestinal: Reports: abdominal pain. Denies: vomiting, diarrhea Genitourinary: Denies: urgency, dysuria Musculoskeletal: Reports: back pain Neurological: Denies: headache, weakness, numbness, paresthesias Past Medical History - Past Medical History Attestation: Yes The following information was validated with the patient. 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 - Social History Smoking Status: Former smoker Smokeless Tobacco Status: No Alcohol use: Reports: rarely Drug use: Reports: none Physical Exam - General Limitations: no limitations General appearance: alert - Head Head exam: atraumatic, normocephalic, normal inspection - Eye Eye exam: Present: normal appearance, PERRL, EOMI - ENT ENT exam: normal exam, normal oropharynx, mucous membranes moist - Neck Neck exam: Present: normal inspection, full ROM, trachea midline - Chest Chest inspection: Present: normal inspection, symmetric chest wall rise - Respiratory Respiratory exam: Present: normal lung sounds bilaterally - Cardiovascular Cardiovascular exam: Present: regular rate, normal rhythm, normal heart sounds - Abdominal Exam Abdominal exam: Present: soft, tenderness (Mild left lower quadrant tenderness), other (Midline lower abdominal infraumbilical surgical incision site that is open, packing in place, no pus drainage, no localized erythema). Absent: distention, guarding, rebound, rigidity - Extremities Exam Extremities exam: Present: normal inspection, full ROM. Absent: tenderness, pedal edema - Back Exam Back exam: Present: paraspinal tenderness (Bilateral, L2-L5), sciatic notch tenderness (R), sciatic notch tenderness (L), straight leg raise (L). Absent: vertebral tenderness, straight leg raise (R) - Neurological Exam Neurological exam: Present: alert, oriented X3. Absent: motor sensory deficit - Psychiatric Psychiatric exam: Present: normal affect, normal mood - Skin Skin exam: Present: warm, dry, intact, normal color Course Course Narrative: No fevers, no new numbness, tingling, weakness. This back pain feels a call previous sciatica except for now on the left side. No other concerning injuries or heavy lifting. We will treat patient symptomatically at this time. We will give the patient Decadron, Valium, Toradol. We will reassess. If patient is able to ambulate, we will likely be to send the patient home. No imaging at this time. 16:06 patient continues to have back pain at this time. She was not able to get up out of bed to ambulate. She is still having significant pain in the low back. She is requesting admission for further pain control. We will give patient another dose of pain medication. Hospitalist requested basic blood work prior to admission 18:08 basic blood work showed no major abnormality. Urinalysis negative for UTI. We will proceed with admission at this time. Vital Signs Temperature 98.8 F 05/17/18 13:57 Pulse Rate 96 05/17/18 13:57 Respiratory Rate 18 05/17/18 13:57 Blood Pressure 148/93 05/17/18 13:57 O2 Sat by Pulse Oximetry 100 05/17/18 13:57 Temperature 98.8 F 05/17/18 13:57 Pulse Rate 80 05/17/18 17:39 Respiratory Rate 18 05/17/18 17:39 Blood Pressure 132/89 05/17/18 17:39 O2 Sat by Pulse Oximetry 96 05/17/18 17:39 Oxygen Delivery Oxygen Delivery Room Air Back Pain/Injury - MDM Narrative Medical decision making narrative: No fevers, no new numbness, tingling, weakness. This back pain feels a call previous sciatica except for now on the left side. No other concerning injuries or heavy lifting. We will treat patient symptomatically at this time. We will give the patient Decadron, Valium, Toradol. We will reassess. If patient is able to ambulate, we will likely be to send the patient home. No imaging at this time. 16:06 patient continues to have back pain at this time. She was not able to get up out of bed to ambulate. She is still having significant pain in the low back. She is requesting admission for further pain control. We will give patient another dose of pain medication. Hospitalist requested basic blood work prior to admission 18:08 basic blood work showed no major abnormality. Urinalysis negative for UTI. We will proceed with admission at this time. - Medical Records Medical records reviewed: Yes I reviewed the patient's medical records. - Lab Data Lab results reviewed: Yes I reviewed the patient's lab results. Result diagrams: 05/17/18 16:33 05/17/18 16:33 Lab Results 05/17/18 05/17/18 05/17/18 Range/Units 16:33 16:33 17:37 WBC 11.7 H (4.3-11.1) K/mcL RBC 4.34 (3.82-4.97) M/mcL Hgb 12.3 (11.5-15.4) g/dL Hct 37.6 (35.3-44.9) % MCV 86.6 (83.0-100.0) fL MCH 28.3 (28.0-33.3) pg MCHC 32.7 (31.6-35.5) g/dL RDW 13.3 (11.5-14.5) % Plt Count 258 (140-400) K/mcL MPV 10.7 (9.4-12.4) fL Immature Gran % 0.3 (0-4) % Seg Neutrophils % 83.9 % Lymphocytes % 9.9 % Monocytes % 5.1 % Eosinophils % 0.5 % Basophils % 0.3 % Neutrophils # 9.8 H (1.6-8.9) K/mcL Lymphocytes # 1.2 (0.6-4.6) K/mcL Monocytes # 0.6 (0.0-1.3) K/mcL Eosinophils # 0.1 (0.0-0.6) K/mcL Basophils # 0.0 (0.0-0.2) K/mcL Sodium 135 L (136-145) mEq/L Potassium 3.8 (3.5-5.1) mEq/L Chloride 101 (98-107) mEq/L Carbon Dioxide 26 (23-29) mEq/L BUN 11 (6-20) mg/dL Creatinine 0.67 (0.60-1.20) mg/dL Est GFR ( Amer) > 60 (> 60) Est GFR (Non-Af Amer) > 60 (> 60) BUN/Creatinine Ratio 16 (6-26) Glucose 105 (70-105) mg/dL Calculated Osmolality 280 (280-300) Calcium 9.5 (8.6-10.3) mg/dL Urine Color (Yellow) Urine Clarity (Clear) Urine pH (5.0-8.0) pH Units Ur Specific Reserve (1.010-1.025) Urine Protein (Neg-Trace) mg/dL Urine Glucose (UA) (Normal) mg/dL Urine Ketones (Negative) mg/dL Urine Blood (Negative) Urine Nitrite (Negative) Urine Bilirubin (Negative) Urine Urobilinogen (Normal) mg/dL Ur Leukocyte Esterase (Negative) Ur Culture Indicated? (NO) Urine Test Negative (Negative) 05/17/18 Range/Units 17:40 WBC (4.3-11.1) K/mcL RBC (3.82-4.97) M/mcL Hgb (11.5-15.4) g/dL Hct (35.3-44.9) % MCV (83.0-100.0) fL MCH (28.0-33.3) pg MCHC (31.6-35.5) g/dL RDW (11.5-14.5) % Plt Count (140-400) K/mcL MPV (9.4-12.4) fL Immature Gran % (0-4) % Seg Neutrophils % % Lymphocytes % % Monocytes % % Eosinophils % % Basophils % % Neutrophils # (1.6-8.9) K/mcL Lymphocytes # (0.6-4.6) K/mcL Monocytes # (0.0-1.3) K/mcL Eosinophils # (0.0-0.6) K/mcL Basophils # (0.0-0.2) K/mcL Sodium (136-145) mEq/L Potassium (3.5-5.1) mEq/L Chloride (98-107) mEq/L Carbon Dioxide (23-29) mEq/L BUN (6-20) mg/dL Creatinine (0.60-1.20) mg/dL Est GFR ( Amer) (> 60) Est GFR (Non-Af Amer) (> 60) BUN/Creatinine Ratio (6-26) Glucose (70-105) mg/dL Calculated Osmolality (280-300) Calcium (8.6-10.3) mg/dL Urine Color Yellow (Yellow) Urine Clarity Clear (Clear) Urine pH 7.5 (5.0-8.0) pH Units Ur Specific Reserve < 1.005 L (1.010-1.025) Urine Protein Negative (Neg-Trace) mg/dL Urine Glucose (UA) Normal (Normal) mg/dL Urine Ketones Negative (Negative) mg/dL Urine Blood Negative (Negative) Urine Nitrite Negative (Negative) Urine Bilirubin Negative (Negative) Urine Urobilinogen Normal (Normal) mg/dL Ur Leukocyte Esterase Negative (Negative) Ur Culture Indicated? NO (NO) Urine Test (Negative) S.B.A.R. - S.B.A.R. Situation: Demographics, MOA Background: Presenting Complaint, Relevant PMH, Meds, & Allergies Assessment: Vital Signs, Course and respsone to treatment, Exam Concerns, Patient/Family Expectation, Pertinant Lab Results Recommendation: Barrier(s) to disposition, Recommendation based on pending studies, treatments, or consults S.B.A.R. Report Given to: Dr. Painting
--- NOTE | 2018-05-17 14:21 | Emergency Department Note ---
Disposition Clinical Impression: Decreased ambulation status Back pain Qualifiers: Back pain location: low back pain Chronicity: acute Back pain laterality: left Sciatica presence: with sciatica Sciatica laterality: sciatica of left side Qualified Code(s): M54.42 - Lumbago with sciatica, left side Disposition: Admitted As Inpatient Condition: Good Referrals: Ben Bullock MD [Primary Care Provider] - Forms: ED Satisfaction Letter General Adult HPI - General Chief complaint: ED Back Pain/Injury Stated complaint: abd pain, back pain Time Seen by Provider: 05/17/18 13:52 Source: patient, EMS Mode of arrival: EMS Limitations: no limitations Nursing Notes Reviewed: Yes Vital Signs Reviewed: Yes - History of Present Illness Pain Scale: 10 - Related Data Home Medications Medication Instructions Recorded Confirmed Albuterol Sulfate [Albuterol 2 puff IH Q6H PRN 03/01/17 05/17/18 Inhaler] EPINEPHrine [Epipen] 0.3 mg IM ONCE PRN 03/01/17 05/17/18 Fluticasone Propionate Nasal 2 spr NS DAILY PRN 03/01/17 05/17/18 [Flonase] Amitriptyline [Elavil] 50 mg PO HS PRN 05/11/18 05/17/18 Buspirone HCl [Buspar] 15 mg PO BID 05/11/18 05/17/18 Estradiol [Estrace] 1 mg PO DAILY 05/11/18 05/17/18 Omeprazole [PriLOSEC] 40 mg PO DAILY 05/11/18 05/17/18 Previous Rx's Medication Instructions Recorded Docusate [Colace] 100 mg PO BID #30 capsule 05/11/18 Oxycodone HCl/Acetaminophen 1 each PO Q6HR PRN 7 Days #25 05/11/18 [Percocet 5-325 mg Tablet] tablet Allergies Allergy/AdvReac Type Severity Reaction Status Date / Time acetaminophen Allergy Rash Verified 05/17/18 17:24 [From Tylenol-Codeine #3] cephalexin [From Keflex] Allergy Rash Verified 05/17/18 17:24 codeine Allergy Rash Verified 05/17/18 17:24 venlafaxine [From Effexor] Allergy See Verified 05/17/18 17:24 Comments venom-honey bee Allergy Anaphylaxis Verified 05/17/18 17:24 influenza virus vaccine ts AdvReac Redness of Verified 05/17/18 17:24 [id number] (36 mos,up) Skin [From Fluarix] Constitutional: Denies: fever Cardiovascular: Denies: chest pain Respiratory: Denies: cough, dyspnea, wheezes, hemoptysis Gastrointestinal: Reports: abdominal pain. 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 - Social History Smoking Status: Former smoker Smokeless Tobacco Status: No Alcohol use: Reports: rarely Drug use: Reports: none Physical Exam - General Limitations: no limitations General appearance: alert Course Vital Signs Temperature 98.8 F 05/17/18 13:57 Pulse Rate 96 05/17/18 13:57 Respiratory Rate 18 05/17/18 13:57 Blood Pressure 148/93 05/17/18 13:57 O2 Sat by Pulse Oximetry 100 05/17/18 13:57 Temperature 98.8 F 05/17/18 13:57 Pulse Rate 80 05/17/18 17:39 Respiratory Rate 18 05/17/18 17:39 Blood Pressure 132/89 05/17/18 17:39 O2 Sat by Pulse Oximetry 96 05/17/18 17:39 Oxygen Delivery Oxygen Delivery Room Air Medical Decision Making - MDM Narrative Medical decision making narrative: 1600 hrs.: Patient's not had really any improvement in pain. She does not think she can go home her in a bring her into the hospital for pain control. Hospitalist requested CBC and chemistry on her. Which we will do. - Lab Data Result diagrams: 05/17/18 16:33 05/17/18 16:33 Lab Results 05/17/18 05/17/18 05/17/18 Range/Units 16:33 16:33 17:37 WBC 11.7 H (4.3-11.1) K/mcL RBC 4.34 (3.82-4.97) M/mcL Hgb 12.3 (11.5-15.4) g/dL Hct 37.6 (35.3-44.9) % MCV 86.6 (83.0-100.0) fL MCH 28.3 (28.0-33.3) pg MCHC 32.7 (31.6-35.5) g/dL RDW 13.3 (11.5-14.5) % Plt Count 258 (140-400) K/mcL MPV 10.7 (9.4-12.4) fL Immature Gran % 0.3 (0-4) % Seg Neutrophils % 83.9 % Lymphocytes % 9.9 % Monocytes % 5.1 % Eosinophils % 0.5 % Basophils % 0.3 % Neutrophils # 9.8 H (1.6-8.9) K/mcL Lymphocytes # 1.2 (0.6-4.6) K/mcL Monocytes # 0.6 (0.0-1.3) K/mcL Eosinophils # 0.1 (0.0-0.6) K/mcL Basophils # 0.0 (0.0-0.2) K/mcL Sodium 135 L (136-145) mEq/L Potassium 3.8 (3.5-5.1) mEq/L Chloride 101 (98-107) mEq/L Carbon Dioxide 26 (23-29) mEq/L BUN 11 (6-20) mg/dL Creatinine 0.67 (0.60-1.20) mg/dL Est GFR ( Amer) > 60 (> 60) Est GFR (Non-Af Amer) > 60 (> 60) BUN/Creatinine Ratio 16 (6-26) Glucose 105 (70-105) mg/dL Calculated Osmolality 280 (280-300) Calcium 9.5 (8.6-10.3) mg/dL Urine Color (Yellow) Urine Clarity (Clear) Urine pH (5.0-8.0) pH Units Ur Specific [place] (1.010-1.025) Urine Protein (Neg-Trace) mg/dL Urine Glucose (UA) (Normal) mg/dL Urine Ketones (Negative) mg/dL Urine Blood (Negative) Urine Nitrite (Negative) Urine Bilirubin (Negative) Urine Urobilinogen (Normal) mg/dL Ur Leukocyte Esterase (Negative) Ur Culture Indicated? (NO) Urine Test Negative (Negative) 05/17/18 Range/Units 17:40 WBC (4.3-11.1) K/mcL RBC (3.82-4.97) M/mcL Hgb (11.5-15.4) g/dL Hct (35.3-44.9) % MCV (83.0-100.0) fL MCH (28.0-33.3) pg MCHC (31.6-35.5) g/dL RDW (11.5-14.5) % Plt Count (140-400) K/mcL MPV (9.4-12.4) fL Immature Gran % (0-4) % Seg Neutrophils % % Lymphocytes % % Monocytes % % Eosinophils % % Basophils % % Neutrophils # (1.6-8.9) K/mcL Lymphocytes # (0.6-4.6) K/mcL Monocytes # (0.0-1.3) K/mcL Eosinophils # (0.0-0.6) K/mcL Basophils # (0.0-0.2) K/mcL Sodium (136-145) mEq/L Potassium (3.5-5.1) mEq/L Chloride (98-107) mEq/L Carbon Dioxide (23-29) mEq/L BUN (6-20) mg/dL Creatinine (0.60-1.20) mg/dL Est GFR ( Amer) (> 60) Est GFR (Non-Af Amer) (> 60) BUN/Creatinine Ratio (6-26) Glucose (70-105) mg/dL Calculated Osmolality (280-300) Calcium (8.6-10.3) mg/dL Urine Color Yellow (Yellow) Urine Clarity Clear (Clear) Urine pH 7.5 (5.0-8.0) pH Units Ur Specific [place] < 1.005 L (1.010-1.025) Urine Protein Negative (Neg-Trace) mg/dL Urine Glucose (UA) Normal (Normal) mg/dL Urine Ketones Negative (Negative) mg/dL Urine Blood Negative (Negative) Urine Nitrite Negative (Negative) Urine Bilirubin Negative (Negative) Urine Urobilinogen Normal (Normal) mg/dL Ur Leukocyte Esterase Negative (Negative) Ur Culture Indicated? NO (NO) Urine Test (Negative) Attestation Statement - Attestation Attestation: This documentation is done with the assistance of Dragon dictation. Despite efforts made to ensure accuracy, there may be inaccuracies in customer complaint service supervisor or spelling and typographical errors. I examined this patient and my medical decision-making was reviewed with the Resident Physician. I agree with the documented findings, disposition and treatment plan as described except to the extent set forth below. Patient seen and evaluated on arrival by EMS and Dr. Gomez, I agree with his evaluation and treatment plan, supervised care the patient's stay. Patient presents today with history of left-sided sciatica. She sat on the right before not on the left. No change in bowel or bladder habits she cannot get comfortable at home. She has no abdominal pain or chest pain no fevers or chills. Renagel and safely make her more comfortable then reassess. She is in agreement with plan. No acute neurologic changes
[2018-05-17 17:01] LABS: Basophils % 0.3 %; Eosinophils # 0.1 K/mcL (0.0-0.6); Eosinophils % 0.5 %; Hematocrit 37.6 % (35.3-44.9); Hemoglobin 12.3 g/dL (11.5-15.4); Immature Granulocytes % 0.3 % (0-4); Lymphocytes # 1.2 K/mcL (0.6-4.6); Lymphocytes % 9.9 %; Mean Corpuscular HGB Conc 32.7 g/dL (31.6-35.5); Mean Corpuscular Hemoglobin 28.3 pg (28.0-33.3); Mean Corpuscular Volume 86.6 fL (83.0-100.0); Mean Platelet Volume 10.7 fL (9.4-12.4); Monocytes # 0.6 K/mcL (0.0-1.3); Monocytes % 5.1 %; Neutrophils # 9.8 K/mcL (1.6-8.9); Platelet Count 258 K/mcL (140-400); Red Blood Count 4.34 M/mcL (3.82-4.97); Red Cell Distribution Width 13.3 % (11.5-14.5); Segmented Neutrophils % 83.9 %
[2018-05-17 17:17] LABS: BUN/Creatinine Ratio 16 (6-26); Blood Urea Nitrogen 11 mg/dL (6-20); Calcium 9.5 mg/dL (8.6-10.3); Carbon Dioxide 26 mEq/L (23-29); Chloride 101 mEq/L (98-107); Glucose 105 mg/dL (70-105); Osmolality,Calculated 280 (280-300); Potassium 3.8 mEq/L (3.5-5.1); Sodium 135 mEq/L (136-145); eGFR For Non-African Americans > 60 (> 60)
[2018-05-17 17:51] LABS: Bilirubin,Urine Negative (Negative); Blood,Urine Negative (Negative); Clarity,Urine Clear (Clear); Color,Urine Yellow (Yellow); Glucose,Urine (UA) Normal (Normal); Ketones,Urine Negative (Negative); Leukocyte Esterase,Urine Negative (Negative); Nitrite,Urine Negative (Negative); PH,Urine 7.5 pH Units (5.0-8.0); Protein,Urine Negative (Neg-Trace); Specific Gravity,Urine < 1.005 (1.010-1.025); Urobilinogen,Urine Normal (Normal)
[2018-05-17] MEDS ORDERED: Naloxone 0.4 MG/ML INJ IVP PRN (20:51)
[2018-05-17] MEDS ORDERED: Gadolinium Contrast Agent (WT Based) IV PRN (20:51)
[2018-05-17] MEDS ORDERED: Ondansetron 4 MG/2 ML VIAL IVP PRN (20:51)
[2018-05-17] MEDS ORDERED: Fluticasone Propionate Nasal 50 MCG/SPRAY BOTTLE NS PRN (20:58)
[2018-05-17] MEDS ORDERED: *HR* EPINEPHrine 0.3 MG/0.3 ML (PEN) IM PRN (20:58)
[2018-05-17] MEDS: *HR* FentaNYL (PF) 100 MCG/2 ML VIAL IVP PRN (21:27)
[2018-05-17 21:40] LABS: Prothrombin Time 11.8 Seconds (9.4-12.1)
[2018-05-17] MEDS: 0.9 % Sodium Chloride w KCl 20 MEQ/1,000 ML MLS IVC SCH (22:34)
--- NOTE | 2018-05-18 01:20 | Internal Med History&Physical ---
Date of Encounter: 05/17/18 Time of Encounter: 19:50 Internal Medicine - H&P: HPI History of present illness: MEDITECH DOWNTIME H&P Tami Martins [id number] Date: 05/17/2018 Time of assessment: 19:50 Time of documentation: 22:50 CC: back pain HABEMATOLEL: Patient presented to the ER by squad after her home health nurse saw and assessed patient. She has been suffering from abdominal wall infection requiri ng wound VAC and surgical debridement. This happened after her lumbar spinal surgery in November of this year. Her surgeon took an anterior approach through her abdominal wall. This was done in [place], [place]. Since then, she has had debridement of her abdominal wall wound infection and has been seeing wound care and has had a wound VAC in place. Since her spine surgery, she has had some mild relief of her lumbar pain. However, over the last couple days and weeks, she has had severe worsening of her lower back pain radiating to her left leg and foot. She has had some mild radiation to her right leg as well. Pain has been unbearable and she cannot move without severe excruciating pain. She denies any loss of bowel or bladder function. She denies any numbness or paralysis of her feet. She has significant weakness in her legs which is not new but worsening. Over the last few days, she developed subjective fevers and chills but no night sweats. She did have recent MRI of her spine about a month ago which, reportedly, did not show any significant findings according to patient and her . Presently, patient is in severe pain and unable to move her legs or buttocks without excruciating pain. I reviewed her labs prior to [facility] going down and noted that she had leukocytosis. She did not have any documented fevers that I can recall. Unfortunately, [facility] is now not available due to downtime procedure. During my assessment of the patient earlier, I was concerned about possible infection of the surgical site and/or infected hardware. She does not have cauda equina syndrome on exam or history. However, I am still concerned about spinal cord involvement. Therefore, I informed patient and her that I want to order stat MRI tonight, blood cultures, and antibiotics, in addition to pain control. If her MRI suggests any kind of spinal surgical emergency, I will try to contact spine surgeon and/or transfer her to a facility with neurosurgical/spinal alcala rgical capability. Patient and family voiced understanding and agreement. PMH: Chronic low back pain/spinal stenosis Obesity PSH: Lumbar spine surgery, anterior abdominal wound debridement and hernia repair Psychiatric history: Anxiety Family History: M: alive/well; no spine problems F: alive/well; no spine problems ROS: Pertinent +: fevers; chills; intractable and worsening LBP; increased weakness of BLE Pertinent -: no loss of bowel or bladder function; no paralysis; no CP; no SOB All other ROS negative Exam: Vitals: currently unavailable due to [employer] Downtime General: patient in excruciating pain, lying still, afraid to move due to pain flare HEENT: Moist mucous membranes, neck supple, pupils equal round and reactive to light and accommodation, extraocular muscles intact. Chest: Lungs clear with no wheezes, rales, or rhonchi. Regular rhythm and rate. No murmurs, thrills, or rubs. Abdomen: Soft, nontender, no hepatosplenomegaly, no palpable masses, positive bowel sounds. Wound is dressed and covered. Extremities: No clubbing, cyanosis, or edema. Pulses are equal in all 4 extremities. No joint effusion. Any movement of her low extremities flares up her low back pain to the point of severe distress and bringing her to tears. Neurologic: Cranial nerves II through XII intact. Deep tendon reflexes normal in upper extremities and both knees. Sensation is intact in both of her legs and feet. Plantar reflexes downgoing bilaterally. Skin: Warm, dry, intact, no rashes. Psychiatric: Normal mood and affect. Patient tearful and slightly anxious due to excruciating pain. Labs: Currently unavailable for review. Of note, I remember patient had leukocytosis on initial labs earlier. Impression/plan: 1. Intractable low back pain: We will continue her on her home Percocet, IV Toradol for moderate pain, and IV fentanyl for severe pain. We will proceed with stat MRI of the lumbar spine tonight to rule out surgical complication, infection, or any spinal cord involvement. I called and discussed with radiologist construction plumber regarding best possible study to order, and he recommends MRI with and without contrast. Additionally, we will order blood cultures and start IV antibiotics. I reviewed her wound culture from earlier this summer and noted she had enterococcus species in her wound. 2. Abdominal wound infection: We will culture and antibiotics as above. Consult wound care for ongoing wound VAC and wound care management. Patient may need general surgery consult as well for wound care. 3. DVT prophylaxis: Heparin subcutaneously. Naveen Zhao M.D. Past Med Surg Social Fam HX - Past Medical History Medical history: GERD, other Psychiatric history: anxiety, depression - Past Surgical History Surgical History: appendectomy, , herniorrhaphy, hysterectomy, other Additional surgical history: endometrial ablation, diagnostic lap, mini laparotomy, back sx - Social History Smoking Status: Former smoker Smokeless Tobacco Status: No Alcohol use: rarely Drug use: none - Family History Paternal Grandfather Hx Family Cardiac Disorders: Yes Internal Medicine - H&P: Meds Albuterol Sulfate [Albuterol Inhaler] 2 puff IH Q6H PRN 03/01/17 [History] EPINEPHrine [Epipen] 0.3 mg IM ONCE PRN 03/01/17 [History] Fluticasone Propionate Nasal [Flonase] 2 spr NS DAILY PRN 03/01/17 [History] Amitriptyline [Elavil] 50 mg PO HS PRN 05/11/18 [History] Buspirone HCl [Buspar] 15 mg PO BID 05/11/18 [History] Docusate [Colace] 100 mg PO BID #30 capsule 05/11/18 [Rx] Estradiol [Estrace] 1 mg PO DAILY 05/11/18 [History] Omeprazole [PriLOSEC] 40 mg PO DAILY 05/11/18 [History] Allergy/AdvReac Type Severity Reaction Status Date / Time acetaminophen Allergy Rash Verified 05/17/18 17:24 [From Tylenol-Codeine #3] cephalexin [From Keflex] Allergy Rash Verified 05/17/18 17:24 codeine Allergy Rash Verified 05/17/18 17:24 venlafaxine [From Effexor] Allergy See Verified 05/17/18 17:24 Comments venom-honey bee Allergy Anaphylaxis Verified 05/17/18 17:24 influenza virus vaccine ts AdvReac Redness of Verified 05/17/18 17:24 [id number] (36 mos,up) Skin [From Fluarix] All Systems PM: A 10-system review of systems was performed and is negative for pertinent findings except as documented above in the HPI. - Constitutional Vitals: Temp Pulse Resp BP Pulse Ox 97.9 F 82 17 128/84 94 05/18/18 00:52 05/18/18 00:52 05/18/18 00:52 05/18/18 00:52 05/18/18 00:52 Exam: see downtime H&P Internal Med - H&P Results - Labs CBC & Chem 7: 05/17/18 16:33 05/17/18 16:33 Labs: Short CBC 05/17/18 Range/Units 16:33 WBC 11.7 H (4.3-11.1) K/mcL Hgb 12.3 (11.5-15.4) g/dL Hct 37.6 (35.3-44.9) % Plt Count 258 (140-400) K/mcL Neutrophils # 9.8 H (1.6-8.9) K/mcL BMP 05/17/18 16:33 Sodium 135 L Potassium 3.8 Chloride 101 Carbon Dioxide 26 BUN 11 Creatinine 0.67 Glucose 105 Calcium 9.5 Urine 05/17/18 Range/Units 17:40 Urine Color Yellow (Yellow) Urine Clarity Clear (Clear) Urine pH 7.5 (5.0-8.0) pH Units Ur Specific [place] < 1.005 L (1.010-1.025) Urine Protein Negative (Neg-Trace) mg/dL Urine Glucose (UA) Normal (Normal) mg/dL - Impressions ITS Impressions Lumbar Spine MRI 05/17/18 20:51 IMPRESSION: L4-5 and L5-S1 anterior fusion with susceptibility artifact from hardware obscuring adjacent structures. L5-S1 neural foramina are poorly characterized. Findings not significantly changed compared to 04/14/2018. No pathologic intraspinal enhancement. Minimal presacral edema likely postoperative in origin. D/ / 05/17/2018 22:26:57 Tobi Bond / Coretta Alford Interpreting Provider: Tobi Bond - Time Spent With Patient Total time spent is greater than 50% in coordination of care (as documented) at patient's floor/unit and/or counseling patient:
[2018-05-18] MEDS: Piperacillin/Tazobactam 3.375 GM in 0.9 % Sodium Chloride Mini Bag 100 ML IVPB SCH ×4 (01:38→23:59)
[2018-05-18 05:28] LABS: Basophils % 0.1 %; Hematocrit 38.5 % (35.3-44.9); Hemoglobin 12.7 g/dL (11.5-15.4); Immature Granulocytes % 0.2 % (0-4); Mean Corpuscular Hemoglobin 28.5 pg (28.0-33.3); Mean Corpuscular Volume 86.3 fL (83.0-100.0); Mean Platelet Volume 10.8 fL (9.4-12.4); Monocytes # 0.4 K/mcL (0.0-1.3); Neutrophils # 7.5 K/mcL (1.6-8.9); Platelet Count 269 K/mcL (140-400); Red Blood Count 4.46 M/mcL (3.82-4.97); Red Cell Distribution Width 13.3 % (11.5-14.5); Segmented Neutrophils % 84.7 %
[2018-05-18 05:49] LABS: Alanine Aminotransferase 12 Units/L (7-52); Albumin 3.8 g/dL (3.5-5.7); Albumin/Globulin Ratio 1.3 (1.1-2.2); Alkaline Phosphatase 150 Units/L (34-104); Aspartate Amino Transferase 12 Units/L (13-39); BUN/Creatinine Ratio 19 (6-26); Bilirubin,Total 0.4 mg/dL (0.3-1.0); Blood Urea Nitrogen 11 mg/dL (6-20); Calcium 9.3 mg/dL (8.6-10.3); Carbon Dioxide 21 mEq/L (23-29); Chloride 107 mEq/L (98-107); Globulin 2.9 g/dL (2.4-3.5); Glucose 140 mg/dL (70-105); Magnesium 1.9 mg/dL (1.6-2.6); Osmolality,Calculated 288 (280-300); Potassium 4.1 mEq/L (3.5-5.1); Sodium 138 mEq/L (136-145); Total Protein 6.7 g/dL (6.4-8.9); eGFR For Non-African Americans > 60 (> 60)
[2018-05-18] MEDS: Ketorolac 15 MG/ML VIAL IVP PRN (06:44)
[2018-05-18] MEDS ORDERED: *HR* EPINEPHrine 1 MG/ML AMPUL IM ONE (07:24)
[2018-05-18] MEDS ORDERED: *HR* EPINEPHrine 1 MG/ML AMPUL IM PRN (08:01)
[2018-05-18] MEDS: *HR* OxyCODONE/APAP 5/325 TABLET PO PRN ×3 (08:35→23:57)
--- NOTE | 2018-05-18 11:36 | General Surgery Consult Note ---
<Isma Salcedo S - Last Filed: 05/18/18 18:40> Date of Encounter: 05/18/18 Assessment and Plan (1) Nonhealing surgical wound Status: Chronic Patient followed by Dr. Guerrero for abdominal fistula repair Patient is not complaining of abdominal pain, nausea, vomiting, fevers, chills She receives home wound vac changes x3 per week Nurse wasn't able to change wound vac yesterday because she came to [place] with severe lower back pain Wound vac placed today by wound care nurse Will change wound vac on using patient's own wound vac, then patient will be ok for discharge from surgery standpoint Wound care office will call patient to establish a follow-up appointment in the next few weeks Qualifiers: Encounter type: initial encounter Qualified Code(s): T81.89XA - Other complications of procedures, not elsewhere classified, initial encounter (2) Back pain Status: Acute Patient is s/p anterior lumbar fusion surgery in November 2017 She has intermittent flare-ups of pain Pain currently controlled On IV fentanyl, IV toradol and PO oxycodone for pain MRI lumbar spine showed minimal pre-sacral edema likely postoperative in origin and no pathologic intraspinal enhancement Qualifiers: Back pain location: low back pain Chronicity: acute Back pain laterality: left Sciatica presence: with sciatica Sciatica laterality: sciatica of left side Qualified Code(s): M54.42 - Lumbago with sciatica, left side (3) Leukocytosis Status: Resolved Patient had WBC of 11.7 on arrival, now 8.8 On zosyn and vanomycin Patient receives wound vac changes (x3 per week) for an abdominal wound, which does not appear to be infected Blood cultures x2 (05/17) - no growth to date Qualifiers: Leukocytosis type: unspecified Qualified Code(s): D72.829 - Elevated white blood cell count, unspecified History of Present Illness Consult date: 05/18/18 Reason for consult: wound care Requesting physician: Jonathan Kothari History of present illness: 47 year old female with PMHx of chronic low back pain s/p anterior lumbar fusion surgery in November 2017 presented to [place] yesterday with complaints of low back pain flare. Surgery was consulted for wound check of wound vac. Patient states her lumbar fusion surgery was performed with an anterior approach through the abdominal wall. The incision site became infected with fistula formation. Dr. Guerrero saw the patient on 05/10 to remove the fistula and place a wound vac. Patient gets home wound vac changes three times per week. Patient states she was experiencing severe back pain when the nurse had come to change her wound vac on Thursday (05/17), so they called EMS who brought her to [place] ED. Patient had lumbar MRI which showed minimal presacral edema likely postoperative in aleaxnder gin and no pathologic intraspinal enhancement. Patient states she has gotten these painful flares periodically since her surgery. She states her pain is much better now. She still has some radiation down her left leg to her feet. She admits to numbness/tingling in her left foot. She denies abdominal pain, CP, SOB, nausea, vomiting, fevers, chills, changes in bowel/bladder habits. Past Med Surg Social Fam HX - Past Medical History Medical history: GERD, other Psychiatric history: anxiety, depression - Past Surgical History Surgical History: appendectomy, , herniorrhaphy, hysterectomy, other Additional surgical history: endometrial ablation, diagnostic lap, mini laparotomy, back sx - Social History Smoking Status: Former smoker Smokeless Tobacco Status: No Alcohol use: rarely Drug use: none - Family History Paternal Grandfather Hx Family Cardiac Disorders: Yes Medications and Allergies RX: Albuterol Sulfate [Albuterol Inhaler] 2 puff IH Q6H PRN 03/01/17 [History] RX: EPINEPHrine [Epipen] 0.3 mg IM ONCE PRN 03/01/17 [History] RX: Fluticasone Propionate Nasal [Flonase] 2 spr NS DAILY PRN 03/01/17 [History] RX: Amitriptyline [Elavil] 50 mg PO HS PRN 05/11/18 [History] RX: Buspirone HCl [Buspar] 15 mg PO BID 05/11/18 [History] RX: Docusate [Colace] 100 mg PO BID #30 capsule 05/11/18 [Rx] RX: Estradiol [Estrace] 1 mg PO DAILY 05/11/18 [History] RX: Omeprazole [PriLOSEC] 40 mg PO DAILY 05/11/18 [History] RX: Meloxicam [Mobic] 15 mg PO DAILY #30 tablet 05/20/18 [Rx] RX: OxyCODONE/APAP 5/325 [Percocet 5/325 MG] 1 each PO Q6HR PRN 10 Days #30 tablet 05/20/18 [Rx] Allergy/AdvReac Type Severity Reaction Status Date / Time acetaminophen Allergy Rash Verified 05/17/18 17:24 [From Tylenol-Codeine #3] cephalexin [From Keflex] Allergy Rash Verified 05/17/18 17:24 codeine Allergy Rash Verified 05/17/18 17:24 venlafaxine [From Effexor] Allergy See Verified 05/17/18 17:24 Comments venom-honey bee Allergy Anaphylaxis Verified 05/17/18 17:24 influenza virus vaccine ts AdvReac Redness of Verified 05/17/18 17:24 [id number] (36 mos,up) Skin [From Fluarix] Review of Systems All systems PM: The remainder of the systems were reviewed and are negative General Surgery Exam Initial Vital Signs Temp Pulse Resp BP Pulse Ox 98.8 F 96 18 148/93 100 05/17/18 13:57 05/17/18 13:57 05/17/18 13:57 05/17/18 13:57 05/17/18 13:57 - General physical appearance well developed, well nourished, obese - Respiratory normal expansion, normal respiratory effort - Cardiovascular Cardiovascular exam: Present: RRR - Abdomen Abdomen general surgery: Present: bowel sounds present, soft, non tender - Integumentary Integumentary general surgery: Present: warm and dry, no abnormal pigmentation - Psychiatric Psychiatric general surgery: Present: A&Ox3, appropriate - Additional Findings suprapubic abdominal wound with mostly granulation tissue and sparse areas of fibrous-appearing tissue (currently getting wound vac changes x3 per week) Exam Initial Vital Signs Temp Pulse Resp BP Pulse Ox 98.8 F 96 18 148/93 100 05/17/18 13:57 05/17/18 13:57 05/17/18 13:57 05/17/18 13:57 05/17/18 13:57 Results - Labs 05/18/18 04:52 05/18/18 04:52 Abnormal lab results APTT 46.0 Seconds (26.0-36.0) H 05/17/18 21:19 Carbon Dioxide 21 mEq/L (23-29) L 05/18/18 04:52 Creatinine 0.57 mg/dL (0.60-1.20) L 05/18/18 04:52 Glucose 140 mg/dL (70-105) H 05/18/18 04:52 AST 12 Units/L (13-39) L 05/18/18 04:52 Alkaline Phosphatase 150 Units/L (34-104) H 05/18/18 04:52 Ur Specific [place] < 1.005 (1.010-1.025) L 05/17/18 17:40 Diabetes panel 05/17/18 05/18/18 Range/Units 16:33 04:52 Sodium 135 L 138 (136-145) mEq/L Potassium 3.8 4.1 (3.5-5.1) mEq/L Chloride 101 107 (98-107) mEq/L Carbon Dioxide 26 21 L (23-29) mEq/L BUN 11 11 (6-20) mg/dL Creatinine 0.67 0.57 L (0.60-1.20) mg/dL Glucose 105 140 H (70-105) mg/dL Calcium 9.5 9.3 (8.6-10.3) mg/dL AST 12 L (13-39) Units/L ALT 12 (7-52) Units/L Alkaline Phosphatase 150 H (34-104) Units/L Albumin 3.8 (3.5-5.7) g/dL Calcium panel 05/17/18 05/18/18 Range/Units 16:33 04:52 Calcium 9.5 9.3 (8.6-10.3) mg/dL Albumin 3.8 (3.5-5.7) g/dL Pituitary panel 05/17/18 05/18/18 Range/Units 16:33 04:52 Sodium 135 L 138 (136-145) mEq/L Potassium 3.8 4.1 (3.5-5.1) mEq/L Chloride 101 107 (98-107) mEq/L Carbon Dioxide 26 21 L (23-29) mEq/L BUN 11 11 (6-20) mg/dL Creatinine 0.67 0.57 L (0.60-1.20) mg/dL Glucose 105 140 H (70-105) mg/dL Calcium 9.5 9.3 (8.6-10.3) mg/dL Adrenal panel 05/17/18 05/18/18 Range/Units 16:33 04:52 Sodium 135 L 138 (136-145) mEq/L Potassium 3.8 4.1 (3.5-5.1) mEq/L Chloride 101 107 (98-107) mEq/L Carbon Dioxide 26 21 L (23-29) mEq/L BUN 11 11 (6-20) mg/dL Creatinine 0.67 0.57 L (0.60-1.20) mg/dL Glucose 105 140 H (70-105) mg/dL Calcium 9.5 9.3 (8.6-10.3) mg/dL Total Bilirubin 0.4 (0.3-1.0) mg/dL AST 12 L (13-39) Units/L ALT 12 (7-52) Units/L Alkaline Phosphatase 150 H (34-104) Units/L Albumin 3.8 (3.5-5.7) g/dL All other labs normal. Consult Discharge Plan - Plan Instructions: Oxycodone/Acetaminophen (By mouth), Meloxicam (By mouth) Additional Instructions: FOLLOW-UP WITH [facility].. Referrals: Ben Bullock MD [Primary Care Provider] - Prescriptions: RX: OxyCODONE/APAP 5/325 [Percocet 5/325 MG] 1 each PO Q6HR PRN 10 Days #30 tablet PRN Reason: Moderate Pain RX: Meloxicam [Mobic] 15 mg PO DAILY #30 tablet <Linda Guerrero - Last Filed: 05/21/18 11:54> Date of Encounter: 05/18/18 Time of Encounter: 15:52 Assessment and Plan (1) Nonhealing surgical wound Status: Chronic patient is in a global period for me no issues of abdominal pain vac placed by wound care nurse today will plan on having wound care nurse change her vac morning and using her (patients vac machine she has brought from home) vac, ok to then dc from surgery standpoint my wound care office will call patient to set up followup in a few weeks, she does not have to be seen this Qualifiers: Encounter type: initial encounter Qualified Code(s): T81.89XA - Other complications of procedures, not elsewhere classified, initial encounter History of Present Illness History of present illness: Patient is postoperative abdominal nonhealing surgical wound exploration and debribdement with wound vac placement on 05.11.18 by myself. She has been having vac changes M, W, F by home care without issues. She was admitted yesterday for severe abdominal pain unrelated to her wound. She denies any abdominal pain associated with her wound, is tolerating diet Review of Systems All systems PM: reviewed and no additional remarkable complaints except as stated All systems PM: The remainder of the systems were reviewed and are negative General Surgery Exam Initial Vital Signs Temp Pulse Resp BP Pulse Ox 98.8 F 96 18 148/93 100 05/17/18 13:57 05/17/18 13:57 05/17/18 13:57 05/17/18 13:57 05/17/18 13:57 - General physical appearance well nourished, no distress - Eyes normal ocular movement - Respiratory normal expansion, normal respiratory effort - Cardiovascular Cardiovascular exam: Present: RRR - Abdomen Abdomen general surgery: Present: soft, non tender - Incision Incision: Present: clean and dry, open (with wound vac in place, no surrouding erythema, drainage in vac is serous) Exam Initial Vital Signs Temp Pulse Resp BP Pulse Ox 98.8 F 96 18 148/93 100 05/17/18 13:57 05/17/18 13:57 05/17/18 13:57 05/17/18 13:57 05/17/18 13:57 Results - Labs 05/18/18 04:52 05/18/18 04:52 Abnormal lab results APTT 46.0 Seconds (26.0-36.0) H 05/17/18 21:19 Carbon Dioxide 21 mEq/L (23-29) L 05/18/18 04:52 Creatinine 0.57 mg/dL (0.60-1.20) L 05/18/18 04:52 Glucose 140 mg/dL (70-105) H 05/18/18 04:52 AST 12 Units/L (13-39) L 05/18/18 04:52 Alkaline Phosphatase 150 Units/L (34-104) H 05/18/18 04:52 Ur Specific [place] < 1.005 (1.010-1.025) L 05/17/18 17:40 Diabetes panel 05/17/18 05/18/18 Range/Units 16:33 04:52 Sodium 135 L 138 (136-145) mEq/L Potassium 3.8 4.1 (3.5-5.1) mEq/L Chloride 101 107 (98-107) mEq/L Carbon Dioxide 26 21 L (23-29) mEq/L BUN 11 11 (6-20) mg/dL Creatinine 0.67 0.57 L (0.60-1.20) mg/dL Glucose 105 140 H (70-105) mg/dL Calcium 9.5 9.3 (8.6-10.3) mg/dL AST 12 L (13-39) Units/L ALT 12 (7-52) Units/L Alkaline Phosphatase 150 H (34-104) Units/L Albumin 3.8 (3.5-5.7) g/dL Calcium panel 05/17/18 05/18/18 Range/Units 16:33 04:52 Calcium 9.5 9.3 (8.6-10.3) mg/dL Albumin 3.8 (3.5-5.7) g/dL Pituitary panel 05/17/18 05/18/18 Range/Units 16:33 04:52 Sodium 135 L 138 (136-145) mEq/L Potassium 3.8 4.1 (3.5-5.1) mEq/L Chloride 101 107 (98-107) mEq/L Carbon Dioxide 26 21 L (23-29) mEq/L BUN 11 11 (6-20) mg/dL Creatinine 0.67 0.57 L (0.60-1.20) mg/dL Glucose 105 140 H (70-105) mg/dL Calcium 9.5 9.3 (8.6-10.3) mg/dL Adrenal panel 05/17/18 05/18/18 Range/Units 16:33 04:52 Sodium 135 L 138 (136-145) mEq/L Potassium 3.8 4.1 (3.5-5.1) mEq/L Chloride 101 107 (98-107) mEq/L Carbon Dioxide 26 21 L (23-29) mEq/L BUN 11 11 (6-20) mg/dL Creatinine 0.67 0.57 L (0.60-1.20) mg/dL Glucose 105 140 H (70-105) mg/dL Calcium 9.5 9.3 (8.6-10.3) mg/dL Total Bilirubin 0.4 (0.3-1.0) mg/dL AST 12 L (13-39) Units/L ALT 12 (7-52) Units/L Alkaline Phosphatase 150 H (34-104) Units/L Albumin 3.8 (3.5-5.7) g/dL All other labs normal. - Attending Attestation I examined this patient and my medical decision-making was reviewed with the Resident Physician. I agree with the documented findings, disposition and treatment plan as described except to the extent set forth below.
[2018-05-18] MEDS: 0.9 % Sodium Chloride w KCl 20 MEQ/1,000 ML MLS IVC SCH (12:07)
[2018-05-18] MEDS: *HR* FentaNYL (PF) 100 MCG/2 ML VIAL IVP PRN ×2 (12:08→20:54)
--- NOTE | 2018-05-18 22:29 | Internal Med Progress Note ---
Hospitalist Progress Note - Encounter Date of Encounter: 05/18/18 Time of Encounter: 19:00 - Subjective Interval History: SUBJECTIVE: The patient feels pretty good. Her low back pain seems to be under control. She got her wound VAC changed today. OBJECTIVE: Skin: Free of rash and discoloration. ENMT: Oral/pharyngeal mucosa is normal in appearance. Eyes: Sclera is white. There is no discharge from eyes. Respiratory: Normal breath sounds; no crackles or wheezes. CV: Heart is regular; no gallop or murmur. GI: Abdomen is soft and not tender. There is no palpable mass or visceromegaly. Neuro: There is no focal deficits. ADDITIONAL DATA: CBC shows normal findings. The same refers to CMP. Blood cultures from yesterday are not growing any organisms. ASSESSMENT AND PLAN: Intractable low back pain/spinal stenosis in lumbar spine. Seems to be under control. We will continue when necessary Percocet and/or IV Toradol. We will start physical therapy for ambulation. She is on IV vancomycin. Nonhealing open abdominal wall wound. See notes from general surgery. Wound VAC has been started. It will be changed to after tomorrow to the device as she has at home. GERD. Under control. We will continue Protonix. - Exam Vitals: Temp Pulse Resp BP Pulse Ox 98.9 F 80 16 113/78 95 05/18/18 19:20 05/18/18 19:20 05/18/18 19:20 05/18/18 19:20 05/18/18 19:20 Exam: xx - Assessment and Plan (1) Intractable back pain Current Visit: Yes Status: Acute (2) Spinal stenosis of lumbar region Current Visit: Yes Status: Chronic (3) Open abdominal wall wound Current Visit: Yes Status: Acute (4) GERD (gastroesophageal reflux disease) Current Visit: No Status: Chronic - Time Spent with Patient Total time spent is greater than 50% in coordination of care (as documented) at patient's floor/unit and/or counseling patient: 25 - 35 minutes Plan of Care Discussed with: patient Internal Medicine: Result - Labs CBC & Chem 7: 05/18/18 04:52 05/18/18 04:52 Labs: Short CBC 05/18/18 Range/Units 04:52 WBC 8.8 (4.3-11.1) K/mcL Hgb 12.7 (11.5-15.4) g/dL Hct 38.5 (35.3-44.9) % Plt Count 269 (140-400) K/mcL Neutrophils # 7.5 (1.6-8.9) K/mcL BMP 05/18/18 04:52 Sodium 138 Potassium 4.1 Chloride 107 Carbon Dioxide 21 L BUN 11 Creatinine 0.57 L Glucose 140 H Calcium 9.3 Liver Function 05/18/18 Range/Units 04:52 Total Bilirubin 0.4 (0.3-1.0) mg/dL AST 12 L (13-39) Units/L ALT 12 (7-52) Units/L Alkaline Phosphatase 150 H (34-104) Units/L Albumin 3.8 (3.5-5.7) g/dL - ABG Interpretation ABG results: PT/INR, D-dimer PT 11.8 Seconds (9.4-12.1) 05/17/18 21:19 - Impressions Impressions Lumbar Spine MRI 05/17/18 20:51 IMPRESSION: L4-5 and L5-S1 anterior fusion with susceptibility artifact from hardware obscuring adjacent structures. L5-S1 neural foramina are poorly characterized. Findings not significantly changed compared to 04/14/2018. No pathologic intraspinal enhancement. Minimal presacral edema likely postoperative in origin. D/ / 05/17/2018 22:26:57 Tobi Bond / Coretta Alford Interpreting Provider: Tobi Bond Consult Discharge Plan - Plan Referrals: Ben Bullock MD [Primary Care Provider] - (4) GERD (gastroesophageal reflux disease) Qualifiers: Esophagitis presence: esophagitis presence not specified Qualified Code(s): K21.9 - Gastro-esophageal reflux disease without esophagitis
[2018-05-19] MEDS: *HR* FentaNYL (PF) 100 MCG/2 ML VIAL IVP PRN ×2 (02:06→08:06)
[2018-05-19] MEDS: *HR* OxyCODONE/APAP 5/325 TABLET PO PRN ×2 (06:23→12:18)
[2018-05-19] MEDS: Piperacillin/Tazobactam 3.375 GM in 0.9 % Sodium Chloride Mini Bag 100 ML IVPB SCH ×2 (08:05→16:32)
[2018-05-19] MEDS: Ketorolac 15 MG/ML VIAL IVP PRN ×3 (08:06→21:16)
--- NOTE | 2018-05-19 16:38 | General Surgery Progress Note ---
<MatiasIsma ferris - Last Filed: 05/19/18 18:03> Date of Encounter: 05/19/18 Time of Encounter: 11:00 - Assessment and Plan (1) Nonhealing surgical wound Status: Chronic Patient followed by Dr. Guerrero for fistula repair Has midline lower abdominal wound treated with wound vac (changed 3 times per week) Patient not complaining of abdominal pain, nausea, vomiting, fevers, chills Patient had wound vac changed yesterday Plan for wound vac change tomorrow (connect to patient's home wound vac), and then ok for discharge from surgical standpoint Wound care office will establish follow-up visit in next few weeks Qualifiers: Encounter type: initial encounter Qualified Code(s): T81.89XA - Other complications of procedures, not elsewhere classified, initial encounter (2) Back pain Status: Acute Patient is s/p anterior lumbar fusion surgery in November 2017 She has intermittent flare-ups of pain Pain currently controlled, states she has a flare-up overnight On IV toradol and PO oxycodone for pain MRI lumbar spine showed minimal pre-sacral edema likely postoperative in origin and no pathologic intraspinal enhancement Qualifiers: Back pain location: low back pain Chronicity: acute Back pain laterality: left Sciatica presence: with sciatica Sciatica laterality: sciatica of left side Qualified Code(s): M54.42 - Lumbago with sciatica, left side (3) Leukocytosis Status: Resolved Patient had WBC of 11.7 on arrival, now 8.8 On zosyn and vanomycin Patient receives wound vac changes (x3 per week) for an abdominal wound, which does not appear to be infected Blood cultures x2 (05/17) - no growth to date Qualifiers: Leukocytosis type: unspecified Qualified Code(s): D72.829 - Elevated white blood cell count, unspecified Subjective Patient reports: no new complaints, feels better, still having pain, flatus, bowel movement Narrative: Patient seen and examined this morning. She states her pain is controlled today, but she had quite a bit of pain last night. She denies abdominal pain, nausea, vomiting. She is tolerating her diet well. Objective Vital Signs - Last 8 Hours Temp Pulse Resp BP Pulse Ox 05/19/18 16:25 98.2 F 73 16 122/80 97 Intake and Output 05/19/18 05/19/18 05/19/18 07:59 15:59 23:59 Intake Total 350 / 350 350 / 350 Output Total 150 / 150 Balance 200 / 200 350 / 350 Intake: IV Fluids 350 / 350 350 / 350 Zosyn 3.375 GM In 0.9 % Sodium 100 / 100 100 / 100 Chloride (Mini-Bag +) 100 ML @ 25 mls/hr IVPB Q8HR [facility] Rx#: [id number] Vancocin 1,250 MG In 0.9 % 250 / 250 250 / 250 Sodium Chloride 250 ML @ 166. 667 mls/hr IVPB Q12H [facility] Rx#: [id number] Oral 0 / 0 Output: Urine 150 / 150 Other: Meal Lunch Percent of Meal Consumed 100% Weight 117.9 kg Patient Weight 05/19/18 23:59 Weight 117.9 kg - General physical appearance well developed, well nourished - Respiratory normal expansion, normal respiratory effort - Cardiovascular Cardiovascular exam: Present: RRR - Abdomen Abdomen: Present: bowel sounds present, soft, non tender Additional Comments: Wound vac over lower abdominal wound - Incision Incision: Present: clean and dry, intact - Integumentary no rash - Psychiatric oriented to time, oriented to person, oriented to place - Labs 05/18/18 04:52 05/18/18 04:52 Consult Discharge Plan - Plan Instructions: Oxycodone/Acetaminophen (By mouth), Meloxicam (By mouth) Additional Instructions: FOLLOW-UP WITH PAIN MGT CLINIC.. Referrals: Ben Bullock MD [Primary Care Provider] - Prescriptions: RX: OxyCODONE/APAP 5/325 [Percocet 5/325 MG] 1 each PO Q6HR PRN 10 Days #30 tablet PRN Reason: Moderate Pain RX: Meloxicam [Mobic] 15 mg PO DAILY #30 tablet <Linda Guerrero - Last Filed: 05/21/18 11:57> Date of Encounter: 05/19/18 - Assessment and Plan (1) Nonhealing surgical wound Status: Chronic patient had a chronic nonhealing wound that required exploration and debridement with wound vac placement to facilitate healing prn pain control she should be off work for 1 month after surgery with re-evaluation at a months time. she will followup with us in wound clinic and have home care for vac changes M, W, F patient is in global period for me Qualifiers: Encounter type: initial encounter Qualified Code(s): T81.89XA - Other complications of procedures, not elsewhere classified, initial encounter Objective - Labs 05/18/18 04:52 05/18/18 04:52 - Attending Attestation I examined this patient and my medical decision-making was reviewed with the Resident Physician. I agree with the documented findings, disposition and treatment plan as described except to the extent set forth below.
[2018-05-19] MEDS: *HR* OxyCODONE ER (12 HR) 10 MG TABLET PO SCH (18:14)
--- NOTE | 2018-05-19 23:05 | Internal Med Progress Note ---
Hospitalist Progress Note - Encounter Date of Encounter: 05/19/18 Time of Encounter: 11:00 - Subjective Interval History: SUBJECTIVE: She is about to start her physical therapy for ambulation. She took a few doses of IV fentanyl in the last 12 hours. She cries frequently. It is mostly due to anxiety. OBJECTIVE: Skin: Free of rash and discoloration. ENMT: Oral/pharyngeal mucosa is normal in appearance. Eyes: Sclera is white. There is no discharge from eyes. Respiratory: Normal breath sounds; no crackles or wheezes. CV: Heart is regular; no gallop or murmur. GI: Abdomen is soft and not tender. There is no palpable mass or visceromegaly. Neuro: There is no focal deficits. ADDITIONAL DATA: She had normal CBC and BMP yesterday. ASSESSMENT AND PLAN: Intractable low back pain/spinal stenosis in lumbar spine. We will stop IV fentanyl. We will continue when necessary Percocet and/or IV Toradol. We is to start physical therapy for ambulation today. Nonhealing open abdominal wall wound. See notes from general surgery. Wound VAC has been started. It will be changed to her own device tomorrow. She is on IV vancomycin. GERD. Under control. We will continue Protonix. - Exam Vitals: Temp Pulse Resp BP Pulse Ox 98.1 F 74 16 122/76 98 05/19/18 20:51 05/19/18 20:51 05/19/18 20:51 05/19/18 20:51 05/19/18 20:51 Exam: xx - Assessment and Plan (1) Intractable back pain Current Visit: Yes Status: Acute (2) Spinal stenosis of lumbar region Current Visit: Yes Status: Chronic (3) Open abdominal wall wound Current Visit: Yes Status: Acute (4) GERD (gastroesophageal reflux disease) Current Visit: No Status: Chronic - Time Spent with Patient Total time spent is greater than 50% in coordination of care (as documented) at patient's floor/unit and/or counseling patient: 25 - 35 minutes Plan of Care Discussed with: patient Internal Medicine: Result - Labs CBC & Chem 7: 05/18/18 04:52 05/18/18 04:52 - ABG Interpretation ABG results: PT/INR, D-dimer PT 11.8 Seconds (9.4-12.1) 05/17/18 21:19 Consult Discharge Plan - Plan Referrals: Ben Bullock MD [Primary Care Provider] - (4) GERD (gastroesophageal reflux disease) Qualifiers: Esophagitis presence: esophagitis presence not specified Qualified Code(s): K21.9 - Gastro-esophageal reflux disease without esophagitis
[2018-05-20] MEDS: Piperacillin/Tazobactam 3.375 GM in 0.9 % Sodium Chloride Mini Bag 100 ML IVPB SCH ×2 (00:14→08:36)
[2018-05-20] MEDS: Ketorolac 15 MG/ML VIAL IVP PRN (04:51)
[2018-05-20] MEDS: *HR* OxyCODONE ER (12 HR) 10 MG TABLET PO SCH (05:59)
[2018-05-20 11:41] VITALS: BP 132/84
--- NOTE | 2018-05-20 15:22 | Discharge Summary ---
Orders not resulted at time of discharge: Pending orders 05/17/18 21:19 Culture,Blood [BC] Stat Date of Encounter: 05/20/18 Time of Encounter: 15:14 - Discharge Diagnosis (1) Intractable back pain Priority: Primary Status: Acute (2) Spinal stenosis of lumbar region Priority: Primary Status: Chronic Qualifiers: Neurogenic claudication status: without neurogenic claudication Qualified Code(s): M48.061 - Spinal stenosis, lumbar region without neurogenic claudication (3) Open abdominal wall wound Priority: Primary Status: Chronic Qualifiers: Encounter type: subsequent encounter Qualified Code(s): S31.109D - Unspecified open wound of abdominal wall, unspecified quadrant without penetration into peritoneal cavity, subsequent encounter (4) GERD (gastroesophageal reflux disease) Priority: Secondary Status: Chronic Qualifiers: Esophagitis presence: esophagitis presence not specified Qualified Code(s): K21.9 - Gastro-esophageal reflux disease without esophagitis Hospital course: HOSPITAL COURSE: The patient is a 47-year-old woman. She had a lumbar spine surgery in November of this year for treatment of spinal stenosis. Subsequently she developed a nonhealing abdominal wound. It underwent exploration and debridement on May 11 by general surgery. I wound VAC has been started. This time we admitted her for intractable low back pain. MRI of lumbar spine has been obtained. It did not show any significant abnormalities. The surgical repair was in place, as intended. We offered this patient IV fentanyl and IV Toradol. Later, we switched her to oral Mobic and when necessary Percocet. We started her on physical therapy. General surgery was consulted to manage her abdominal wall wound. The wound seems to be healing well. She received IV vancomycin and IV Zosyn during this hospitalization. Before the discharge we switched her to her on the wound VAC. CONDITION AT DISCHARGE: The patient is able to walk short distances. Her pain seems to be bearable. Skin: Free of rash and discoloration. Respiratory: Normal breath sounds with no crackles and wheezes bilaterally. CV: Heart is regular with no gallop or murmur. GI: Abdomen is flat and soft with no palpable mass or visceromegaly. Neuro exam: There is no focal deficits. SEE DISCHARGE ORDERS/MEDICATIONS.. She is to see a sign painter soon. She will continue her wound VAC at home. Discharge discussed with: patient, nurse, case management - Time Spent with Patient Total time spent providing and/or coordinating discharge services: Greater than 30 minutes (40 minutes..) - Discharge Medications Prescriptions: OxyCODONE/APAP 5/325 [Percocet 5/325 MG] 1 each PO Q6HR PRN 10 Days #30 tablet PRN Reason: Moderate Pain Meloxicam [Mobic] 15 mg PO DAILY #30 tablet Home Medications: Albuterol Sulfate [Albuterol Inhaler] 2 puff IH Q6H PRN 03/01/17 [History] EPINEPHrine [Epipen] 0.3 mg IM ONCE PRN 03/01/17 [History] Fluticasone Propionate Nasal [Flonase] 2 spr NS DAILY PRN 03/01/17 [History] Amitriptyline [Elavil] 50 mg PO HS PRN 05/11/18 [History] Buspirone HCl [Buspar] 15 mg PO BID 05/11/18 [History] Docusate [Colace] 100 mg PO BID #30 capsule 05/11/18 [Rx] Estradiol [Estrace] 1 mg PO DAILY 05/11/18 [History] Omeprazole [PriLOSEC] 40 mg PO DAILY 05/11/18 [History] Meloxicam [Mobic] 15 mg PO DAILY #30 tablet 05/20/18 [Rx] OxyCODONE/APAP 5/325 [Percocet 5/325 MG] 1 each PO Q6HR PRN 10 Days #30 tablet 05/20/18 [Rx] Allergies/Adverse Reactions: Allergy/AdvReac Type Severity Reaction Status Date / Time acetaminophen Allergy Rash Verified 05/17/18 17:24 [From Tylenol-Codeine #3] cephalexin [From Keflex] Allergy Rash Verified 05/17/18 17:24 codeine Allergy Rash Verified 05/17/18 17:24 venlafaxine [From Effexor] Allergy See Verified 05/17/18 17:24 Comments venom-honey bee Allergy Anaphylaxis Verified 05/17/18 17:24 influenza virus vaccine ts AdvReac Redness of Verified 05/17/18 17:24 [id number] (36 mos,up) Skin [From Fluarix] Date of admission: 05/17/18 18:38 Primary care physician: Ben Bullock MD Consults: 05/17/18 18:21 Consult to Surgery [CONS] Stat Consulting Provider: Surgery [facility] Reason for Consult: abdominal wound care - sees Dr. Guerrero Call Completed: No 05/17/18 21:01 Consult to Wound Care [CONS] Routine Reason for Consult: wound vac care and wound assessment Call Completed: No 05/18/18 22:33 Consult to Physical Therapy [CONS] Routine Comment: Evaluate, develop and implement POC Reason for Consult: Low back pain. Does patient have active BEDREST order?: No Is patient medically & hemodynamically stable?: Yes Patient assessed for mobility or mobilized this visit?: No Discharging clinician: Dragan Fishman Anticipated date of discharge: 05/20/18 - Constitutional Vitals: Temp Pulse Resp BP Pulse Ox 98.1 F 75 16 132/84 98 05/20/18 11:39 05/20/18 11:39 05/20/18 11:39 05/20/18 11:39 05/20/18 11:39 General appearance: Present: A&O X 3, no acute distress, answers questions appropriately Exam: xx - Patient Status Disposition: Home Health Service Condition: Fair Functional capacity at discharge: independent ambulation Overall status at discharge: patient is progressing back to baseline - Discharge Instructions Instructions: Oxycodone/Acetaminophen (By mouth), Meloxicam (By mouth) Follow Up With: Ben Bullock MD [Primary Care Provider] - Additional Instructions: FOLLOW-UP WITH PAIN MGT CLINIC.. - Diet and Activity Activity: increase activity as tolerated Diet: regular diet - VTE Reasons for not Prescribing Prophylaxis: Treatment not Indicated - Low risk for VTE Deep Vein Thrombosis/Pulmonary Embolism Present on Admission: No
--- NOTE | 2018-05-20 15:40 | Physician Discharge Referral ---
Home Health/Hosp Referral Info Transfer to: Home Health Attending Provider: Kevin Fishman MD Provider in Charge Post Discharge: PCP - Diagnosis (1) Intractable back pain Priority: Primary Status: Acute (2) Spinal stenosis of lumbar region Priority: Primary Status: Chronic (3) Open abdominal wall wound Priority: Primary Status: Chronic (4) GERD (gastroesophageal reflux disease) Priority: Secondary Status: Chronic - Respiratory Orders None Smoking Cessation: Smoking cessation has been advised. For more information, call the [place] Tobacco Quit Line at 6-684-ILND-NOW. - Dressing/Wound Care Site: ABDOMEN Type of Dressing/Treatments w/Frequency: WOUN VAC - Diet/Nutrition Diet/Nutrition Orders: Regular - Activity Activity Orders: Up ad marietta - Services Needed Following services are medically necessary services: Nursing, Physical Therapy - Transfer Medications Prescriptions: OxyCODONE/APAP 5/325 [Percocet 5/325 MG] 1 each PO Q6HR PRN 10 Days #30 tablet PRN Reason: Moderate Pain Meloxicam [Mobic] 15 mg PO DAILY #30 tablet Home Medications: Albuterol Sulfate [Albuterol Inhaler] 2 puff IH Q6H PRN 03/01/17 [History] EPINEPHrine [Epipen] 0.3 mg IM ONCE PRN 03/01/17 [History] Fluticasone Propionate Nasal [Flonase] 2 spr NS DAILY PRN 03/01/17 [History] Amitriptyline [Elavil] 50 mg PO HS PRN 05/11/18 [History] Buspirone HCl [Buspar] 15 mg PO BID 05/11/18 [History] Docusate [Colace] 100 mg PO BID #30 capsule 05/11/18 [Rx] Estradiol [Estrace] 1 mg PO DAILY 05/11/18 [History] Omeprazole [PriLOSEC] 40 mg PO DAILY 05/11/18 [History] Meloxicam [Mobic] 15 mg PO DAILY #30 tablet 05/20/18 [Rx] OxyCODONE/APAP 5/325 [Percocet 5/325 MG] 1 each PO Q6HR PRN 10 Days #30 tablet 05/20/18 [Rx] Allergies/Adverse Reactions: Allergy/AdvReac Type Severity Reaction Status Date / Time acetaminophen Allergy Rash Verified 05/17/18 17:24 [From Tylenol-Codeine #3] cephalexin [From Keflex] Allergy Rash Verified 05/17/18 17:24 codeine Allergy Rash Verified 05/17/18 17:24 venlafaxine [From Effexor] Allergy See Verified 05/17/18 17:24 Comments venom-honey bee Allergy Anaphylaxis Verified 05/17/18 17:24 influenza virus vaccine ts AdvReac Redness of Verified 05/17/18 17:24 [id number] (36 mos,up) Skin [From Fluarix] Certification: Further, I certify that my clinical findings support that this patient is homebound (i.e. absences from home require considerable and taxing effort and are for medical reasons or sabianist services or infrequently or short duration when for other reasons) because: Homebound Reason: Patient requires assistance of a person or device to safely leave home Attestation: My signature below is to certify that this patient is under my care and that I, or nurse practitioner, or a physician's workers compensation claims assistant working with me, has a face-to -face encounter with this patient.
[2018-05-20] MEDS ORDERED: Aminoglycoside Consult 1 EACH MC ONE (16:17)
== END 2018-05-20 16:18 | disposition home health service (06) ==
LOC: EMEROOARM 13:49 → 2ANU 13:49 → SUATTDRO 18:38 → 2ANU 18:50
PROVIDERS: ADMIT Internal Medicine; ATTEND Internal Medicine

== ENCOUNTER 2019-06-01 12:39 | Observation (INO) ==
[2019-06-01] MEDS ORDERED: Isovue-370 500 ML BOTTLE IVP ONE (13:21)
[2019-06-01] MEDS ORDERED: 0.9 % Sodium Chloride 500 ML IV ONE (13:26)
[2019-06-01] MEDS ORDERED: Morphine Sulfate 2 MG/ML SYRINGE IVP ONE ×2 (13:26→16:33)
[2019-06-01 13:53] LABS: Basophils % 0.3 %; Eosinophils # 0.1 K/mcL (0.0-0.6); Eosinophils % 0.8 %; Hematocrit 37.9 % (35.3-44.9); Hemoglobin 12.5 g/dL (11.5-15.4); Immature Granulocytes % 0.3 % (0-4); Lymphocytes # 1.5 K/mcL (0.6-4.6); Lymphocytes % 15.1 %; Mean Corpuscular Volume 87.9 fL (83.0-100.0); Mean Platelet Volume 10.7 fL (9.4-12.4); Monocytes # 0.8 K/mcL (0.0-1.3); Monocytes % 7.8 %; Neutrophils # 7.6 K/mcL (1.6-8.9); Platelet Count 261 K/mcL (140-400); Red Blood Count 4.31 M/mcL (3.82-4.97); Red Cell Distribution Width 13.8 % (11.5-14.5); Segmented Neutrophils % 75.7 %; White Blood Count 10.1 K/mcL (4.3-11.1)
[2019-06-01] MEDS ORDERED: Ondansetron 4 MG/2 ML VIAL IVP ONE (14:04)
[2019-06-01] MEDS ORDERED: Ondansetron 4 MG/2 ML VIAL ONE (14:14)
[2019-06-01 15:11] LABS: BUN/Creatinine Ratio 16 (6-26); Blood Urea Nitrogen 11 mg/dL (6-20); Calcium 9.7 mg/dL (8.6-10.3); Carbon Dioxide 23 mEq/L (23-29); Chloride 104 mEq/L (98-107); Glucose 107 mg/dL (70-105); Osmolality,Calculated 286 (280-300); Potassium 3.8 mEq/L (3.5-5.1); Sodium 138 mEq/L (136-145); eGFR For African Americans > 60 (> 60); eGFR For Non-African Americans > 60 (> 60)
[2019-06-01] MEDS ORDERED: *HR* Heparin 5,000 UNIT/ML VIAL IVP ONE (16:26)
[2019-06-01] MEDS ORDERED: *HR* Heparin 5,000 UNIT/ML VIAL IVP PRN ×2 (16:26)
[2019-06-01] MEDS: Heparin 25,000 UNIT/250 ML D5W 25,000 UNIT/250 ML IV.SOLN IVC SCH (16:44)
[2019-06-01 16:56] LABS: INR 1.1; Prothrombin Time 12.6 Seconds (9.4-12.1)
[2019-06-01 17:00] LABS: Hematocrit 38.6 % (35.3-44.9); Hemoglobin 12.3 g/dL (11.5-15.4); Mean Corpuscular HGB Conc 31.9 g/dL (31.6-35.5); Mean Corpuscular Hemoglobin 28.7 pg (28.0-33.3); Platelet Count 238 K/mcL (140-400); Red Blood Count 4.29 M/mcL (3.82-4.97); Red Cell Distribution Width 13.9 % (11.5-14.5); White Blood Count 10.1 K/mcL (4.3-11.1)
[2019-06-01] MEDS ORDERED: Fluticasone Propionate Nasal 50 MCG/SPRAY BOTTLE NS PRN (17:17)
[2019-06-01] MEDS ORDERED: Naloxone 0.4 MG/ML INJ IVP PRN (17:18)
[2019-06-01] MEDS: Methocarbamol 750 MG TABLET PO SCH (20:06)
[2019-06-01] MEDS ORDERED: Acetaminophen 325 MG TABLET PO PRN (20:23)
[2019-06-01] MEDS ORDERED: Ibuprofen 400 MG TABLET PO PRN (20:48)
[2019-06-01] MEDS ORDERED: Gabapentin 300 MG CAPSULE PO SCH ×2 (21:00)
[2019-06-01] MEDS ORDERED: Methocarbamol 750 MG TABLET PO SCH (21:00)
[2019-06-01] MEDS ORDERED: Acetaminophen IV 1,000 MG/100 ML INFUS..BTL IVPB ONE (23:48)
[2019-06-02] MEDS ORDERED: traMADol 50 MG TABLET PO ONE ×2 (00:13→16:09)
[2019-06-02 05:22] LABS: Basophils % 0.4 %; Eosinophils # 0.1 K/mcL (0.0-0.6); Eosinophils % 1.9 %; Hematocrit 34.7 % (35.3-44.9); Hemoglobin 10.8 g/dL (11.5-15.4); Immature Granulocytes % 0.3 % (0-4); Lymphocytes # 2.1 K/mcL (0.6-4.6); Lymphocytes % 30.5 %; Mean Corpuscular HGB Conc 31.1 g/dL (31.6-35.5); Mean Corpuscular Hemoglobin 28.9 pg (28.0-33.3); Mean Corpuscular Volume 92.8 fL (83.0-100.0); Mean Platelet Volume 10.9 fL (9.4-12.4); Monocytes # 0.7 K/mcL (0.0-1.3); Monocytes % 10.9 %; Neutrophils # 3.8 K/mcL (1.6-8.9); Platelet Count 227 K/mcL (140-400); Red Blood Count 3.74 M/mcL (3.82-4.97); Red Cell Distribution Width 13.8 % (11.5-14.5); White Blood Count 6.8 K/mcL (4.3-11.1)
[2019-06-02 05:36] LABS: BUN/Creatinine Ratio 13 (6-26); Blood Urea Nitrogen 11 mg/dL (6-20); Calcium 9.1 mg/dL (8.6-10.3); Carbon Dioxide 27 mEq/L (23-29); Chloride 104 mEq/L (98-107); Glucose 125 mg/dL (70-105); Magnesium 1.8 mg/dL (1.6-2.6); Osmolality,Calculated 289 (280-300); Potassium 3.7 mEq/L (3.5-5.1); Sodium 139 mEq/L (136-145); eGFR For African Americans > 60 (> 60); eGFR For Non-African Americans > 60 (> 60)
[2019-06-02] MEDS: Methocarbamol 750 MG TABLET PO SCH (08:45)
[2019-06-02] MEDS: Heparin 25,000 UNIT/250 ML D5W 25,000 UNIT/250 ML IV.SOLN IVC SCH (08:46)
[2019-06-02] MEDS ORDERED: Ketorolac 15 MG/ML VIAL IVP ONE (09:40)
[2019-06-02] MEDS ORDERED: *HR* Rivaroxaban 15 MG TABLET PO SCH (11:47)
[2019-06-02 15:31] VITALS: BP 99/66
== END 2019-06-02 17:30 | disposition home or self-care (01) ==
LOC: 3NENU 12:39 → EMEROOARM 12:39 → 3NENU 18:49
PROVIDERS: ADMIT Family Medicine; ATTEND Family Medicine